=== PATIENT | female | born 1955 | race Caucasian/White ===

== ENCOUNTER → 2016-04-29 | Outpatient (CLI) | payer OTHER ==
[~2016-04-29] MED LIST: COLACE PO; LEVO50TA4 PO; MULTCAP PO; PAXI30TA2 PO; VITAD1000T PO
[2016-04-29 10:44] LABS: BASO # 0.1 K/mm3 (0.0-0.2); BASO % 0.9 % (0.0-1.0); EOS # 0.2 K/mm3 (0.0-0.50); EOS % 2.7 % (0.0-3.0); LYMPH # 1.6 K/mm3 (1.5-4.5); LYMPH % 19.8 % (24.0-44.0); MEAN CORPUSCULAR HEMOGLOBIN 31.7 pg (27.0-33.0); MEAN CORPUSCULAR HGB CONC 32.8 g/dl (32.0-36.5); MEAN CORPUSCULAR VOLUME 96.7 fl (80.0-96.0); MONO # 0.3 K/mm3 (0.0-0.8); MONO % 4.2 % (0.0-5.0); NEUTROPHILS # 5.5 K/mm3 (1.8-7.7); NEUTROPHILS % 70.1 % (36.0-66.0); RED CELL DISTRIBUTION WIDTH 14.1 % (11.5-14.5); WHITE BLOOD COUNT 7.8 K/mm3 (4.0-10.0)
[2016-04-29 11:15] LABS: ALBUMIN 3.6 GM/DL (3.2-5.2); ALBUMIN/GLOBULIN RATIO 0.97 (1.00-1.93); ALKALINE PHOSPHATASE 151 U/L (45-117); ALT/SGPT 44 U/L (12-78); ANION GAP 13 MEQ/L (8-16); AST/SGOT 44 U/L (15-37); BILIRUBIN,TOTAL 0.7 MG/DL (0.2-1.0); BLOOD UREA NITROGEN 19 MG/DL (7-18); CALCIUM LEVEL 9.1 MG/DL (8.5-10.1); CARBON DIOXIDE LEVEL 25 MEQ/L (21-32); CHLORIDE LEVEL 106 MEQ/L (98-107); CHOLESTEROL LEVEL 163 MG/DL (<200); GLOMERULAR FILTRATION RATE > 60.0 (>51); GLUCOSE, FASTING 89 MG/DL (70-105); POTASSIUM SERUM 4.4 MEQ/L (3.5-5.1); SODIUM LEVEL 144 MEQ/L (136-145); THYROXINE (T4) 6.5 UG/DL (4.5-12.0); TOTAL PROTEIN 7.3 GM/DL (6.4-8.2); TRIGLYCERIDES LEVEL 146 MG/DL (<150)
== END ==
LOC: M LAB 10:09
PROVIDERS: ATTEND Physician Assistant Medical
DX: E03.9 Hypothyroidism, unspecified (principal); E78.2 Mixed hyperlipidemia; E55.9 Vitamin D deficiency, unspecified

== ENCOUNTER → 2016-08-07 | Outpatient (CLI) | payer OTHER ==
--- NOTE | 2016-08-08 06:24 | REP ---
Clinical: High risk factors including smoking, hypertension and heart disease. Comparison: 11/16/2014 . Technique: Ho scale and color Doppler evaluation using linear high frequency transducer Findings: Examination is technically limited due to body habitus and tortuosity of the arterial vasculature. Two-dimensional ho scale and color images demonstrate mixed plaquing along the common carotid arteries extending to the carotid bulbs. Color Doppler interrogation demonstrates normal arterial wave patterns and velocities with mild spectral broadening. Normal flow direction is appreciated in the bilateral vertebral arteries. RIGHT (cm/s) LEFT (cm/s) ICA peak systolic velocity 86.1 68.1 ICA diastolic velocity 32.4 11.6 ECA peak systolic velocity 71.4 82.9 CCA peak systolic velocity 69.8 57.9 ICA/CCA ratio 1.25 1.18 Impression: No hemodynamically significant areas of narrowing or stenosis appreciated. Based on set standards narrowing falls within the less than 50% range and most pronounced at the right carotid bulb. . Signed by Dillon Edwards MD 08/08/2016 06:16 A
== END ==
LOC: M RAD 12:01
PROVIDERS: ATTEND Physician Assistant Medical
DX: J06.9 Acute upper respiratory infection, unspecified (principal); R09.89 Other specified symptoms and signs involving the circulatory and respiratory systems

== ENCOUNTER → 2016-10-30 | Outpatient (CLI) | payer OTHER ==
[2016-10-30 10:44] LABS: BASO # 0.1 K/mm3 (0.0-0.2); BASO % 1.3 % (0.0-1.0); EOS # 0.3 K/mm3 (0.0-0.50); EOS % 4.3 % (0.0-3.0); LYMPH # 1.4 K/mm3 (1.5-4.5); LYMPH % 22.6 % (24.0-44.0); MEAN CORPUSCULAR HEMOGLOBIN 34.3 pg (27.0-33.0); MEAN CORPUSCULAR HGB CONC 33.7 g/dl (32.0-36.5); MEAN CORPUSCULAR VOLUME 101.6 fl (80.0-96.0); MONO # 0.4 K/mm3 (0.0-0.8); MONO % 6.2 % (0.0-5.0); NEUTROPHILS % 63.8 % (36.0-66.0); RED CELL DISTRIBUTION WIDTH 13.3 % (11.5-14.5); WHITE BLOOD COUNT 6.3 K/mm3 (4.0-10.0)
[2016-10-30 11:29] LABS: ALKALINE PHOSPHATASE 207 U/L (45-117); ALT/SGPT 74 U/L (12-78); ANION GAP 9 MEQ/L (8-16); AST/SGOT 93 U/L (15-37); BILIRUBIN,TOTAL 0.6 MG/DL (0.2-1.0); BLOOD UREA NITROGEN 16 MG/DL (7-18); CALCIUM LEVEL 9.2 MG/DL (8.5-10.1); CARBON DIOXIDE LEVEL 23 MEQ/L (21-32); CHLORIDE LEVEL 110 MEQ/L (98-107); CHOLESTEROL LEVEL 202 MG/DL (<200); CREATININE FOR GFR 0.84 MG/DL (0.55-1.02); GLOMERULAR FILTRATION RATE > 60.0 (>51); GLUCOSE, FASTING 87 MG/DL (70-105); POTASSIUM SERUM 4.8 MEQ/L (3.5-5.1); SODIUM LEVEL 142 MEQ/L (136-145); TRIGLYCERIDES LEVEL 252 MG/DL (<150)
== END ==
LOC: M LAB 08:50
PROVIDERS: ATTEND Physician Assistant Medical
DX: R09.89 Other specified symptoms and signs involving the circulatory and respiratory systems (principal)

== ENCOUNTER → 2016-10-30 | Outpatient (CLI) | payer OTHER ==
--- NOTE | 2016-10-30 23:21 | REP ---
Clinical: Lumbar pain and radiculopathy. Technique: AP, lateral, flexion/extension, bilateral oblique and coned-down views of the lumbosacral spine. Findings: No acute fracture / compression injury is appreciated. Chronic grade 1 anterolisthesis at the L4-5 level of approximately 9.6 mm is appreciated and appears relatively stable compared to MRI dated 08/09/2016. Moderate multilevel degenerative changes include endplate sclerosis, marginal osteophytes and hypertrophic facet changes. Advanced degenerative changes at the L5-S1 level include endplate sclerosis with near complete disc space obliteration and hypertrophic facet changes. Impression: Chronic moderate to advanced multilevel degenerative changes as described above including chronic grade 1 anterolisthesis at the L4-5 level and near complete disc space obliteration at the L5-S1 level. Signed by Dillon Edwards MD 10/30/2016 11:13 P
== END ==
LOC: M RAD 08:53
PROVIDERS: ATTEND Physician Assistant Surgical
DX: M54.16 Radiculopathy, lumbar region (principal); M51.27 Other intervertebral disc displacement, lumbosacral region; M43.16 Spondylolisthesis, lumbar region

== ENCOUNTER → 2016-11-01 | Outpatient (CLI) | payer OTHER ==
--- NOTE | 2016-11-01 15:25 | REP ---
Right upper quadrant sonography: History: Increased liver function studies. Findings: Scanning through right upper quadrant of the abdomen demonstrates a normal sized thin-walled gallbladder without evidence of stone or polyp. Common bile duct is at the upper range of normal at 0.8 cm in greatest diameter. There is diffuse fatty infiltration of the liver and the liver parenchyma is poorly penetrated sonographically and poorly seen as a result. There is 0.7 cm cyst anteriorly in the right lobe. The pancreas shows no abnormality. Incidental note is made of a small distal abdominal aortic aneurysm measuring 3.2 cm anteroposterior by 3.1 cm transverse. There is no evidence of ascites or right renal abnormality. The right kidney measures 10.5 x 6.0 x 4.8 cm. Impression: 1 . Advanced diffuse fatty infiltration of the liver. 2. Small hepatic cyst. 3. 3.2 cm infrarenal abdominal aortic aneurysm. Signed by Torrey Vaz MD 11/01/2016 03:27 P
== END ==
LOC: M RAD 07:38
PROVIDERS: ATTEND Physician Assistant Medical
DX: K76.0 Fatty (change of) liver, not elsewhere classified (principal); I71.4 Abdominal aortic aneurysm, without rupture; K76.89 Other specified diseases of liver

== ENCOUNTER → 2016-12-25 | Outpatient (REF) | payer OTHER ==
[2017-01-05 14:08] LABS: BENZODIAZEPINES, URINE SCREEN Negative ng/mL (Cutoff=200); METHADONE, URINE SCREEN Negative ng/mL (Cutoff=300); OPIATES, URINE Positive ng/mL (Cutoff=300); pH, URINE 6.1 (4.5-8.9)
== END ==
LOC: M LAB REF 13:39
PROVIDERS: ATTEND Physician Assistant Medical
DX: M54.5 Low back pain (principal)

== ENCOUNTER 2017-04-17 06:15 | Emergency (ER) | payer OTHER | END 2017-04-17 07:41 | disposition home or self-care (01) | LOC: M ED 06:15 | DX: J01.00 Acute maxillary sinusitis, unspecified (principal); I10 Essential (primary) hypertension; F41.9 Anxiety disorder, unspecified; E03.9 Hypothyroidism, unspecified; F17.210 Nicotine dependence, cigarettes, uncomplicated; Z79.890 Hormone replacement therapy; Z79.899 Other long term (current) drug therapy; Z88.2 Allergy status to sulfonamides; Z87.09 Personal history of other diseases of the respiratory system; Z95.5 Presence of coronary angioplasty implant and graft | CPT/HCPCS: 99283 ==

== ENCOUNTER → 2017-06-23 | Outpatient (CLI) | payer OTHER ==
[2017-06-23 08:46] LABS: HEMOGLOBIN 13.2 g/dl (12.0-15.5); MEAN CORPUSCULAR HEMOGLOBIN 32.8 pg (27.0-33.0); MEAN CORPUSCULAR VOLUME 99.3 fl (80.0-96.0); PLATELET COUNT, AUTOMATED 280 10^3/uL (150-450); RED BLOOD COUNT 4.03 10^6/uL (4.00-5.40); RED CELL DISTRIBUTION WIDTH 14.2 % (11.5-14.5); WHITE BLOOD COUNT 7.9 10^3/uL (4.0-10.0)
[2017-06-23 09:17] LABS: ALBUMIN/GLOBULIN RATIO 1.05 (1.00-1.93); ALKALINE PHOSPHATASE 136 U/L (45-117); ALT/SGPT 59 U/L (12-78); ANION GAP 7 MEQ/L (8-16); AST/SGOT 70 U/L (7-37); BILIRUBIN,TOTAL 0.4 MG/DL (0.2-1.0); BLOOD UREA NITROGEN 13 MG/DL (7-18); CALCIUM LEVEL 9.8 MG/DL (8.8-10.2); CARBON DIOXIDE LEVEL 29 MEQ/L (21-32); CHLORIDE LEVEL 106 MEQ/L (98-107); CHOLESTEROL LEVEL 175 MG/DL (<200); CHOLESTEROL RISK RATIO 2.916 (<5); CREATININE FOR GFR 0.79 MG/DL (0.55-1.30); GLOMERULAR FILTRATION RATE > 60.0 (>45); GLUCOSE, FASTING 104 MG/DL (70-100); HDL CHOLESTEROL 60 MG/DL (>40); LDL CHOLESTEROL 57.4 MG/DL (<100); NON-HDL-C 115 MG/DL; POTASSIUM SERUM 4.5 MEQ/L (3.5-5.1); SODIUM LEVEL 142 MEQ/L (136-145); TOTAL PROTEIN 7.8 GM/DL (6.4-8.2); TRIGLYCERIDES LEVEL 288 MG/DL (<150)
[2017-06-23 11:01] LABS: TOTAL 25(OH) VITAMIN D 43.8 NG/ML (30.0-100.0)
[2017-06-23 11:46] LABS: ESTIMATED AVERAGE GLUCOSE 108 MG/DL (60-110); HEMOGLOBIN A1c 5.4 %
== END ==
LOC: M LAB 08:10
DX: I10 Essential (primary) hypertension (principal); E03.9 Hypothyroidism, unspecified; R53.83 Other fatigue; Z95.2 Presence of prosthetic heart valve
CPT/HCPCS: 71046

== ENCOUNTER → 2019-06-24 | Outpatient (CLI) | payer OTHER ==
[~2019-06-24] MED LIST changes: +AUGM875T28 PO; +FLON1SPR; +HYDR-3713 PO; +PRED20TA PO; +TESS100C PO
--- NOTE | 2019-06-24 09:31 | REP ---
REASON: Followup abdominal aortic aneurysm seen on prior right upper quadrant ultrasound 11/01/2016, which was 3.2 cm in its AP dimension and seen in an infrarenal location. Today's examination again shows an infrarenal abdominal aortic aneurysm with a maximal AP dimension of 4.8 cm measured in a longitudinal scan plane with a maximal length of 10.6 cm. There is no evidence of concomitant common iliac arterial ectasia. IMPRESSION: The infrarenal abdominal aortic aneurysm has increased in size as described above. Electronically Signed by Edwin Matamoros DO 06/24/2019 10:50 A
== END ==
LOC: M RAD 08:28
PROVIDERS: ATTEND Family Medicine
DX: I71.4 Abdominal aortic aneurysm, without rupture (principal)

== ENCOUNTER 2019-07-11 10:16 | Emergency (ER) | payer OTHER ==
[~2019-07-11] VITALS: Ht 162.6 cm; Wt 74.1 kg
[2019-07-11 11:08] LABS: BASO # 0.1 10^3/uL (0.0-0.2); BASO % 1.3 % (0.0-1.0); EOS # 0.1 10^3/uL (0.0-0.5); EOS % 1.6 % (0.0-3.0); HEMATOCRIT 45.3 % (36.0-47.0); HEMOGLOBIN 14.8 g/dl (12.0-15.5); LYMPH # 1.4 10^3/uL (1.5-5.0); LYMPH % 16.3 % (24.0-44.0); MEAN CORPUSCULAR HEMOGLOBIN 33.1 pg (27.0-33.0); MEAN CORPUSCULAR HGB CONC 32.7 g/dl (32.0-36.5); MEAN CORPUSCULAR VOLUME 101.3 fl (80.0-96.0); MONO # 0.6 10^3/uL (0.0-0.8); MONO % 7.7 % (0.0-5.0); PLATELET COUNT, AUTOMATED 254 10^3/uL (150-450); RED BLOOD COUNT 4.47 10^6/uL (4.00-5.40); WHITE BLOOD COUNT 8.3 10^3/uL (4.0-10.0)
[2019-07-11 11:20] LABS: INR 0.98; PROTHROMBIN TIME 12.7 SECONDS (11.8-14.0)
--- NOTE | 2019-07-11 11:22 | ECGEPIP ---
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
[2019-07-11 11:45] LABS: ALBUMIN 3.8 GM/DL (3.2-5.2); ALT/SGPT 35 U/L (12-78); BILIRUBIN,DIRECT 0.2 MG/DL (0.0-0.2); BILIRUBIN,TOTAL 0.4 MG/DL (0.2-1.0); BLOOD UREA NITROGEN 18 MG/DL (7-18); CARBON DIOXIDE LEVEL 26 MEQ/L (21-32); CHLORIDE LEVEL 103 MEQ/L (98-107); CK-MB VALUE MASS 3.6 NG/ML (<3.6); CPK CREATINE PHOSPHOKINASE 227 U/L (26-192); CREATININE FOR GFR 0.69 MG/DL (0.55-1.30); GLOMERULAR FILTRATION RATE > 60.0 (>45); GLUCOSE, FASTING 76 MG/DL (70-100); MB/CK RELATIVE INDEX 1.59 (< OR =4); POTASSIUM SERUM 3.8 MEQ/L (3.5-5.1); SODIUM LEVEL 139 MEQ/L (136-145); TOTAL PROTEIN 8.5 GM/DL (6.4-8.2); TROPONIN I 0.04 NG/ML (< 0.10)
[2019-07-11] MEDS ORDERED: LORazepam 2 MG TAB PO PRN (15:00)
[2019-07-11 17:45] VITALS: BP 159/72
[2019-07-12] MEDS ORDERED: MULTIVITAMINS/MINERALS THERAP 1 TAB PO SCH (09:00)
== END 2019-07-11 19:03 | disposition home or self-care (01) ==
LOC: M ED 10:16
DX: F10.221 Alcohol dependence with intoxication delirium (principal); I10 Essential (primary) hypertension; I25.10 Atherosclerotic heart disease of native coronary artery without angina pectoris; F17.218 Nicotine dependence, cigarettes, with other nicotine-induced disorders; I71.4 Abdominal aortic aneurysm, without rupture; Z79.899 Other long term (current) drug therapy; Z79.52 Long term (current) use of systemic steroids; Z88.2 Allergy status to sulfonamides; F32.9 Major depressive disorder, single episode, unspecified; F41.9 Anxiety disorder, unspecified
CPT/HCPCS: 80048; 80076; 82550; 82553; 85025; 85610; 93005; 93041; 94760; 99285; G0480

== ENCOUNTER 2020-01-09 08:01 | Inpatient (IN) | payer OTHER ==
[~2020-01-09 08:01] MED LIST changes: +RAMELTEON 8 MG TAB (ROZEREM) PO ONE
[2020-01-09] MEDS ORDERED: FLUO20CA22 PO (08:24)
[2020-01-09] MEDS ORDERED: SIMV20TA22 PO (08:24)
[2020-01-09] MEDS ORDERED: ALPR0.5T3 PO (08:24)
[2020-01-09] MEDS ORDERED: ROPI1TAB3 PO (08:24)
[2020-01-09] MEDS ORDERED: METO1TAB32 PO (08:24)
[2020-01-09 09:44] LABS: BASO # 0.1 10^3/uL (0.0-0.2); EOS # 0.3 10^3/uL (0.0-0.5); EOS % 4.2 % (0.0-3.0); HEMATOCRIT 43.3 % (36.0-47.0); HEMOGLOBIN 14.2 g/dl (12.0-15.5); LYMPH # 1.5 10^3/uL (1.5-5.0); LYMPH % 24.4 % (24.0-44.0); MEAN CORPUSCULAR HEMOGLOBIN 32.6 pg (27.0-33.0); MEAN CORPUSCULAR HGB CONC 32.8 g/dl (32.0-36.5); MEAN CORPUSCULAR VOLUME 99.5 fl (80.0-96.0); MONO # 0.4 10^3/uL (0.0-0.8); MONO % 7.3 % (0.0-5.0); NEUTROPHILS # 3.8 10^3/uL (1.5-8.5); NEUTROPHILS % 62.8 % (36.0-66.0); PLATELET COUNT, AUTOMATED 229 10^3/uL (150-450); RED BLOOD COUNT 4.35 10^6/uL (4.00-5.40)
[2020-01-09 10:19] LABS: ALBUMIN 4.1 GM/DL (3.2-5.2); ALT/SGPT 24 U/L (12-78); BILIRUBIN,DIRECT < 0.1 MG/DL (0.0-0.2); BILIRUBIN,TOTAL 0.4 MG/DL (0.2-1.0); BLOOD UREA NITROGEN 14 MG/DL (7-18); CALCIUM LEVEL 9.6 MG/DL (8.8-10.2); CARBON DIOXIDE LEVEL 27 MEQ/L (21-32); CHLORIDE LEVEL 102 MEQ/L (98-107); CK-MB VALUE MASS 3.5 NG/ML (<3.6); CPK CREATINE PHOSPHOKINASE 478 U/L (26-192); CREATININE FOR GFR 0.85 MG/DL (0.55-1.30); ETHYL ALCOHOL (ETHANOL) < 0.003 % (0.000-0.010); FREE T4 0.15 NG/DL (0.76-1.46); GLOMERULAR FILTRATION RATE > 60.0 (>45); GLUCOSE, FASTING 88 MG/DL (70-100); MB/CK RELATIVE INDEX 0.73 (< OR =4); POTASSIUM SERUM 3.8 MEQ/L (3.5-5.1); SODIUM LEVEL 136 MEQ/L (136-145); TOTAL PROTEIN 7.4 GM/DL (6.4-8.2); TROPONIN I 0.03 NG/ML (< 0.10)
[2020-01-09] MEDS ORDERED: LEVOTHYROXINE 137MCG TABLET (0.137MG) PO ONE (11:45)
[2020-01-09] MEDS ORDERED: ISOVUE-370 76% 100ML VIAL As Ordered ONE (13:58)
--- NOTE | 2020-01-09 14:11 | REP ---
INDICATION: weakness. COMPARISON: 06/23/2017 two-view chest TECHNIQUE: AP portable upright FINDINGS: Sternotomy wires are again seen with cardiac valve the surgery. Heart is mildly prominent even allowing for AP portable lordotic technique. There is venous hypertension. Some underlying fibrosis makes early interstitial edema difficult to exclude. No gross infiltrate or effusion. A tortuous calcified ectatic aorta again seen and unchanged. Mediastinal with unchanged allowing for lordotic portable technique. The bones show no acute finding. No free air under the diaphragm. IMPRESSION: 1. Some mild cardiomegaly with prior cardiac valve surgery. Evidence for pulmonary venous hypertension. Early interstitial edema difficult to exclude in the setting of mild fibrosis. 2. No dense consolidation, effusion, parenchymal mass, pleural thickening or other new/acute finding. 3. Tortuous, calcified ectatic aorta with no change from previous studies. Bones intact. <Electronically signed by Holger Weber > 01/09/20 [id number]
--- NOTE | 2020-01-09 15:24 | REP ---
INDICATION: known AAA, weakness, back pain. COMPARISON: Abdominal aortic ultrasound 06/24/2019, MRI lumbar spine T2 sagittal sequence [id number] TECHNIQUE: Bolus of 100 mL Isovue 370 with scanning through the abdomen in axial projection and both coronal and sagittal standard and coronal MIP reformats provided. FINDINGS: The lung bases were clear. The heart is enlarged with prior mitral valve the surgery evident. Left atrium and left ventricle prominent no pericardial thickening or effusion. No hiatal hernia. The liver is not enlarged. No splenomegaly, ascites in the upper abdomen or focal lesion in either of these organs. Gallbladder without calcified stone or mass adrenal glands, pancreas and kidneys grossly unremarkable. Abdominal aorta shows tortuosity and atherosclerotic calcific plaque scattered throughout. It is infrarenal aneurysm has a maximum AP diameter of 4.6 cm in the infrarenal aorta in a transverse diameter 4.8 cm. Eccentric plaque is noted. There is no evidence of a retroperitoneal leak. Atherosclerotic calcifications extend into the common and external iliacs as well as the internal iliac arteries the common iliacs maintain flow and there is some stenosis in the proximal right internal iliac artery with poststenotic dilatation and maximum diameter up to 15 mm no mesenteric, retroperitoneal or periaortic adenopathy. There is no perforation or free air. No ascites in the abdomen. Small bowel loops and colon are unremarkable. Bone windows show degenerative disc changes lower lumbar spine with a few mm of anterolisthesis of L4 on L5 from facet arthritis, no spondylolysis. Sclerotic area in the inferior aspect of the T10 vertebral body is unchanged dating back to a CT chest of 04/02/2012 and represents a degenerative change. IMPRESSION: 1. Infrarenal abdominal aortic aneurysm with maximum AP diameter 4 point 6 cm in transverse diameter 4.8 cm with eccentric calcific and soft plaque evident. I do not see evidence of acute dissection, retroperitoneal bleed or aortic leak. The least a 9 cm length from the infrarenal region to the bifurcation with a fusiform appearance of the aneurysm. No retroperitoneal bleed or leak. No significant progression in size from and ultrasound on 06/24/2019. 2. Atherosclerotic calcification and plaque in the common and internal iliacs as well as external iliac arteries with ectasia but no aneurysm. 3. No other significant or acute finding. <Electronically signed by Holger Weber > 01/09/20 [id number]
[2020-01-09] MEDS ORDERED: MULT-40 PO (16:14)
[2020-01-09] MEDS ORDERED: SYNT137T7 PO (16:14)
[2020-01-09] MEDS ORDERED: D31000TA2 PO (16:14)
[2020-01-09] MEDS ORDERED: ACET-683 PO (16:14)
[2020-01-09] MEDS ORDERED: NORCO, ANEXSIA 5/325MG TABLET (HYDROcodone/ACETAMINOPHEN) PO PRN (17:15)
[2020-01-09] MEDS ORDERED: ALPRAZolam 0.5 MG TAB PO PRN (17:15)
[2020-01-09 18:03] VITALS: BP 150/95
--- NOTE | 2020-01-09 18:30 | HPEPDOC ---
General Date of Admission Jan 09, 2020 at 15:29 Date of Service: Jan 09, 2020 Chief Complaint The patient is a 64-year-old female admitted with a reason for visit of medication non-compliance, hypothyroidism, and generalized weakness. Source: Patient History of Present Illness Ms. Estrella is a 64 year old female with CAD s/p CABG, abdominal aneurysm, depression, bed bugs, and hypothyroidism who is here for generalized weakness. About 2 to 3 months ago she was following with Dr. Marie. Her insurance changed and so she has not been able to seen him. She ran out of medications for 2 to 3 weeks. She is on levothyroxine and has not taken it for 2 to 3 months. For the past 5 days, she has felt weak and dizzy. She has chills/cold intolerance which she attributes to hypothyroidism. Today, she felt so weak, she was not able to get out of bed. She called 911 which brought her to the hospital. While in the ED, they check her thyroid studies. TSH was 59 and free T4 was 0.15. They called for admission. Otherwise, She was following a vascular surgeon at [facility] for her abdominal aortic aneurysm. The previous size was 4.8cm. She was lost to follow up. Imaging in the ED demonstrates a similar sized AAA. Home Medications Scheduled Cholecalciferol (Vitamin D3) (Vitamin D3) 1,000 Unit Tablet, 1,000 UNITS PO DAILY, (Reported) Fluoxetine Hcl (Fluoxetine HCl) 20 Mg Capsule, 20 MG PO DAILY, (Reported) Levothyroxine Sodium (Synthroid) 137 Mcg Tablet, 137 MCG PO DAILY, (Reported) Metoprolol Succinate (Metoprolol Succinate) 25 Mg Tab.er.24h, 25 MG PO DAILY, (Reported) Multivitamin (Multivitamins) 1 Each Tablet, 1 TAB PO DAILY, (Reported) Ropinirole HCl (Ropinirole HCl) 1 Mg Tablet, 1 MG PO BID, (Reported) Simvastatin (Simvastatin) 20 Mg Tablet, 20 MG PO QHS, (Reported) Scheduled PRN Acetaminophen (Acetaminophen) 500 Mg Tablet, 1,000 MG PO Q8H PRN for PAIN / FEVER, (Reported) Alprazolam (Alprazolam) 0.5 Mg Tablet, 0.5 MG PO TID PRN for ANXIETY, (Reported) Hydrocodone/Acetaminophen (Hydrocodone-Acetamin 5-325 mg) 1 Tab Tab, 1 TAB PO BID PRN for PAIN, (Reported) Allergies Coded Allergies: Sulfa (Sulfonamide Antibiotics) (Verified Allergy, Intermediate, 07/11/19) Past Medical History Medical History 1. CAD s/p CABG 2. Hyperlipidemia 3. Hypertension 4. AAA, 4.8 cm and 9cm long (01/09/2020) 5. Low back pain 6. Hypothyroidism 7. Depression Surgical History 1. CABG x3 Family History Father: DM and heart disease Mother: Thyroid and HTN Social History * Smoker: current smoker (Smoked for 10 years, less than 1ppd) Alcohol: rarely Drugs: denies A-FIB/CHADSVASC A-FIB History Current/History of A-Fib/PAF?: No Review of Systems Constitutional: Reports: Chills Eyes: Reports: Other (Watery eyes) ENT: Reports: Other Symptoms (Rhinorrhea); Denies: Head Aches Skin: Denies: Rash Pulmonary: Denies: Dyspnea, Cough Cardiovascular: Denies: Chest Pain Gastrointestinal: Reports: Abdominal Pain (chronic ); Denies: Nausea Genitourinary: Denies: Dysuria Hematologic: Reports: Bruising Endocrine: Denies: Polydipsia, Polyphagia, Polyuria Physical Examination General Exam: Positive: Alert, Cooperative, No Acute Distress Eye Exam: Positive: EOMI; Negative: Sclera icteric ENT Exam: Positive: Atraumatic Neck Exam: Positive: Supple Chest Exam: Positive: Clear to auscultation; Negative: Rales, Rhonchi, Wheezing Heart Exam: Positive: Rate Normal, Regular Rhythm Abdomen Exam: Positive: Normal bowel sounds, Soft; Negative: Tenderness Extremity Exam: Negative: Cyanosis Skin Exam: Positive: Other skin issue (Bed bug bites with the prescense of bed bugs) Neuro Exam: Positive: Cranial Nerves 3-12 NL Psych Exam: Positive: Mental status NL, Anxiety Vital Signs Vital Signs Date Time Temp Pulse Resp B/P (MAP) Pulse Ox O2 Delivery O2 Flow Rate FiO2 01/09/20 17:10 53 18 152/78 (102) 98 Room Air 01/09/20 15:40 98.2 Laboratory Data Labs 24H Laboratory Tests 2 01/09/20 08:48: Immature Granulocyte % (Auto) 0.3, Neutrophils (%) (Auto) 62.8, Lymphocytes (%) (Auto) 24.4, Monocytes (%) (Auto) 7.3H, Eosinophils (%) (Auto) 4.2H, Basophils (%) (Auto) 1.0, Neutrophils # (Auto) 3.8, Lymphocytes # (Auto) 1.5, Monocytes # (Auto) 0.4, Eosinophils # (Auto) 0.3, Basophils # (Auto) 0.1, Nucleated Red Blood Cells % (auto) 0.0 01/09/20 08:54: Anion Gap 7L, Glomerular Filtration Rate > 60.0, Calcium Level 9.6, Total Bilirubin 0.4, Direct Bilirubin < 0.1, Aspartate Amino Transf (AST/SGOT) 47H, Alanine Aminotransferase (ALT/SGPT) 24, Alkaline Phosphatase 74, Total Creatine Kinase 478H, Creatine Kinase MB 3.5, Creatine Kinase MB Relative Index 0.73, Troponin I 0.03, Total Protein 7.4, Albumin 4.1, Albumin/Globulin Ratio 1.2, Thyroid Stimulating Hormone (TSH) 59.800H, Free Thyroxine 0.15L, Ethyl Alcohol Level < 0.003 01/09/20 16:30: Coronavirus (COVID-19)(PCR) NEGATIVE CBC/BMP Laboratory Tests 01/09/20 08:48 01/09/20 08:54 Assessment/Plan Ms. Estrella is a 64 year old female with noncompliance, hypothyroidism, and CABG here with generalized weakness. We will restart her medication and have physical therapy evaluate her. She may need rehab or placement. Plan / VTE VTE Prophylaxis Ordered?: Yes Plan Plan 1. Generalized weakness -Unable to get out of bed -Secondary to hypothyroidism -Restart her thyroid medication -Physical therapy ordered 2. Hypothyroidism -Restart her thyroid medication 3. CAD s/p CABG -Aspirin, metoprolol, simvastatin -No active chest pain 4. Hypertension -Restarted metoprolol -Adding lisinopril for better control 5. Abdominal pain -Reports abdominal pain and takes [place] for the pain previously. Reports pain from AAA. She has been without [place] for 2 to 3 months. Will hold [place] for the time being -Acetaminophen for pain -CT abd/pelvis did not demonstrate any source of pain 6. Depression -Restart Fluoxetine 7. Anxiety -Hold alprazolam. She has been weight alprazolam for 2 to 3 months. 8. Bed bugs -Hygiene -Contact precautions 9. DVT ppx -Lovenox Dispo: Pending physical therapy. May need rehab ROMY GIBBONS DO Jan 09, 2020 18:02
[2020-01-09] MEDS: rOPINIRole 1MG TAB PO SCH (20:42)
[2020-01-09] MEDS: SIMVASTATIN 20 MG TAB PO SCH (20:42)
[2020-01-09] MEDS: ENOXAPARIN 40MG/0.4ML SYRINGE (J1650 PER 10MG) SC SCH (20:42)
[2020-01-09] MEDS: lisinopriL 5 MG TAB PO SCH (20:43)
[2020-01-09 22:00] VITALS: BP_SYST 131; BP_SYST 150; BP_DIAS 71; BP_DIAS 89
[2020-01-10] MEDS ORDERED: RAMELTEON 8 MG TAB (ROZEREM) PO ONE (00:15)
[2020-01-10] MEDS: LEVOTHYROXINE 137MCG TABLET (0.137MG) PO SCH (05:40)
[2020-01-10 06:00] VITALS: BP 126/73
[2020-01-10] MEDS: ACETAMINOPHEN 500 MG TAB PO PRN ×3 (06:40→22:09)
[2020-01-10 07:01] LABS: HEMATOCRIT 45.3 % (36.0-47.0); HEMOGLOBIN 14.9 g/dl (12.0-15.5); MEAN CORPUSCULAR HEMOGLOBIN 33.6 pg (27.0-33.0); MEAN CORPUSCULAR HGB CONC 32.9 g/dl (32.0-36.5); MEAN CORPUSCULAR VOLUME 102.3 fl (80.0-96.0); PLATELET COUNT, AUTOMATED 241 10^3/uL (150-450); RED BLOOD COUNT 4.43 10^6/uL (4.00-5.40); WHITE BLOOD COUNT 6.3 10^3/uL (4.0-10.0)
[2020-01-10 07:29] LABS: BLOOD UREA NITROGEN 12 MG/DL (7-18); CALCIUM LEVEL 9.3 MG/DL (8.8-10.2); CARBON DIOXIDE LEVEL 30 MEQ/L (21-32); CHLORIDE LEVEL 101 MEQ/L (98-107); GLOMERULAR FILTRATION RATE > 60.0 (>45); GLUCOSE, FASTING 93 MG/DL (70-100); POTASSIUM SERUM 3.6 MEQ/L (3.5-5.1); SODIUM LEVEL 137 MEQ/L (136-145)
[2020-01-10] MEDS: VITAMIN D 1,000 INTERNATIONAL UNITS TABLET PO SCH (08:44)
[2020-01-10] MEDS: DOCUSATE SODIUM 100 MG CAP PO SCH ×2 (08:44→22:08)
[2020-01-10] MEDS: rOPINIRole 1MG TAB PO SCH ×2 (08:44→22:07)
[2020-01-10] MEDS: ASPIRIN 81 MG ENTERIC TAB PO SCH (08:44)
[2020-01-10] MEDS: FLUoxetine 20 MG CAP PO SCH (08:44)
[2020-01-10] MEDS: lisinopriL 5 MG TAB PO SCH (08:44)
[2020-01-10] MEDS: METOPROLOL SUCC *XL* 25MG TAB (TopROL *XL*) PO SCH (08:45)
[2020-01-10] MEDS: MULTIVITAMINS/MINERALS THERAP 1 TAB PO SCH (08:45)
[2020-01-10] MEDS ORDERED: FLUBLOK(EGG FREE)(QUAD)INFLUENZA VACC 0.5ML SYRINGE 18YRS & OLDER IM ONE (09:00)
--- NOTE | 2020-01-10 09:43 | ECGEPIP ---
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
[2020-01-10 14:00] VITALS: BP 103/61
[2020-01-10] MEDS: LIDOCAINE 5% (LIDODERM) PATCH TD SCH (14:15)
[2020-01-10 22:00] VITALS: BP 130/90
[2020-01-10] MEDS: **NOTE PATIENT COMMENT** MISC XX SCH (22:07)
[2020-01-10] MEDS: ENOXAPARIN 40MG/0.4ML SYRINGE (J1650 PER 10MG) SC SCH (22:08)
[2020-01-10] MEDS: SIMVASTATIN 20 MG TAB PO SCH (22:08)
[2020-01-10] MEDS: RAMELTEON 8 MG TAB (ROZEREM) PO PRN (22:26)
--- NOTE | 2020-01-10 22:58 | IPNPDOC ---
Subjective Date Seen The patient was seen on 01/10/20. Subjective Chief Complaint/HPI Ms. Estrella is a 64 year old female with CAD s/p CABG, abdominal aneurysm, depression, bed bugs, and hypothyroidism who is here for generalized weakness. She still feels weak and has cold intolerance. Otherwise denies dyspnea, abdominal pain, or dysuria. Objective Physical Examination General Exam: Positive: Alert, Cooperative, No Acute Distress Eye Exam: Positive: EOMI; Negative: Sclera icteric ENT Exam: Positive: Atraumatic Neck Exam: Positive: Supple Chest Exam: Positive: Clear to auscultation; Negative: Rales, Rhonchi, Wheezing Heart Exam: Positive: Rate Normal, Regular Rhythm Abdomen Exam: Positive: Normal bowel sounds, Soft; Negative: Tenderness Extremity Exam: Negative: Cyanosis Skin Exam: Positive: Other skin issue (Bed bug bites with the prescense of bed bugs) Neuro Exam: Positive: Cranial Nerves 3-12 NL Psych Exam: Positive: Mental status NL, Anxiety Assessment /Plan Assessment Ms. Estrella is a 64 year old female with noncompliance, hypothyroidism, and CABG here with generalized weakness. We will restart her medication and have physical therapy evaluate her. She may need rehab or placement. Plan/VTE VTE Prophylaxis Ordered?: Yes Plan 1. Generalized weakness -Unable to get out of bed -Secondary to hypothyroidism -Restart her thyroid medication -Physical therapy ordered 2. Hypothyroidism -Restart her thyroid medication 3. CAD s/p CABG -Aspirin, metoprolol, simvastatin -No active chest pain 4. Hypertension -Restarted metoprolol -Adding lisinopril for better control 5. Abdominal pain -Reports abdominal pain and takes [place] for the pain previously. Reports pain from AAA. She has been without [place] for 2 to 3 months. Will hold [place] for the time being -Acetaminophen for pain -CT abd/pelvis did not demonstrate any source of pain 6. Depression -Restart Fluoxetine 7. Anxiety -Hold alprazolam. She has been weight alprazolam for 2 to 3 months. 8. Bed bugs -Hygiene -Contact precautions 9. DVT ppx -Lovenox Dispo: Pending physical therapy. May need rehab VS, I&O, 24H, Fishbone Vital Signs/I&O Vital Signs Date Time Temp Pulse Resp B/P (MAP) Pulse Ox O2 Delivery O2 Flow Rate FiO2 01/10/20 14:00 97.6 70 18 103/61 (75) 98 Room Air I&O- Last 24 Hours up to 6 AM0 01/10/20 06:00 Intake Total 0 ml Output Total 200 ml Balance -200 ml Laboratory Data 24H LABS Laboratory Tests 2 01/10/20 06:32: Nucleated Red Blood Cells % (auto) 0.0, Anion Gap 6L, Glomerular Filtration Rate > 60.0, Calcium Level 9.3, Magnesium Level 2.0 01/10/20 09:55: Urine Color YELLOW, Urine Appearance HAZY, Urine pH 5.0, Urine Specific Lyles 1.045, Urine Protein NEGATIVE, Urine Glucose (UA) NEGATIVE, Urine Ketones NEGATIVE, Urine Blood 1+H, Urine Nitrite NEGATIVE, Urine Bilirubin NEGATIVE, Urine Urobilinogen 0.2, Urine Leukocyte Esterase TRACEH, Urine WBC (Auto) 5H, Urine RBC (Auto) 1, Urine Hyaline Casts (Auto) 9, Urine Bacteria (Auto) 1+H, Urine Squamous Epithelial Cells 6, Urine Sperm (Auto) CBC/BMP Laboratory Tests 01/10/20 06:32 Microbiology Microbiology 01/10/20 Urine Culture, Received Pending ROMY GIBBONS DO Jan 10, 2020 22:57
[2020-01-11 06:00] VITALS: BP 152/87
[2020-01-11] MEDS: LEVOTHYROXINE 137MCG TABLET (0.137MG) PO SCH (06:12)
[2020-01-11 07:28] LABS: BLOOD UREA NITROGEN 14 MG/DL (7-18); CARBON DIOXIDE LEVEL 26 MEQ/L (21-32); CHLORIDE LEVEL 103 MEQ/L (98-107); CREATININE FOR GFR 0.84 MG/DL (0.55-1.30); GLOMERULAR FILTRATION RATE > 60.0 (>45); GLUCOSE, FASTING 95 MG/DL (70-100); POTASSIUM SERUM 3.4 MEQ/L (3.5-5.1); SODIUM LEVEL 137 MEQ/L (136-145)
[2020-01-11 07:29] LABS: CALCIUM LEVEL 9.5 MG/DL (8.8-10.2)
[2020-01-11] MEDS: METOPROLOL SUCC *XL* 25MG TAB (TopROL *XL*) PO SCH (08:11)
[2020-01-11] MEDS: VITAMIN D 1,000 INTERNATIONAL UNITS TABLET PO SCH (08:11)
[2020-01-11] MEDS: MULTIVITAMINS/MINERALS THERAP 1 TAB PO SCH (08:11)
[2020-01-11] MEDS: ASPIRIN 81 MG ENTERIC TAB PO SCH (08:11)
[2020-01-11] MEDS: FLUoxetine 20 MG CAP PO SCH (08:11)
[2020-01-11] MEDS: DOCUSATE SODIUM 100 MG CAP PO SCH ×2 (08:11→21:00)
[2020-01-11] MEDS: rOPINIRole 1MG TAB PO SCH ×2 (08:11→20:59)
[2020-01-11] MEDS: lisinopriL 5 MG TAB PO SCH (08:12)
[2020-01-11] MEDS: LIDOCAINE 5% (LIDODERM) PATCH TD SCH (08:12)
[2020-01-11] MEDS ORDERED: POTASSIUM CHLORIDE 10 MEQ SR TABLET PO ONE (11:00)
[2020-01-11] MEDS ORDERED: PSEUDOEPHEDRINE 30 MG TAB PO PRN (11:30)
[2020-01-11] MEDS: SODIUM CHLORIDE NASAL 0.65% SPRAY BTL (OCEAN) SCH ×2 (12:49→20:59)
[2020-01-11] MEDS: guaiFENesin 200 MG TAB PO SCH ×3 (12:49→20:59)
[2020-01-11 13:57] VITALS: BP 131/76
--- NOTE | 2020-01-11 15:08 | IPNPDOC ---
Text Note Date of Service The patient was seen on 01/11/20. NOTE Subjective: Mrs. Estrella is a 64-year-old female patient with coronary artery disease s/p CABG, abdominal aneurysm, depression, bedbugs and hypothyroidism who presented to the emergency department with generalized weakness. Patient was seen at bed side, She reports to have weakness, cold intolerance. she also reports to have pain and feeling stuffed in her sinuses. She denies having any nausea, vomiting, chest pain, abdominal pain, dysuria, diarrhea, constipation. Objective: General: Patient is awake, alert, oriented times three, laying in bed , no apparent distress. Cardiovascular: S1, S2, normal rhythm, no murmur, rub, or gallop. Respiratory: Chest is clear to auscultation bilaterally, no rhonchi, wheezes or rubs. Abdomen: Soft, bowel sounds positive, no bruits. No tenderness on palpation. Liver edge, spleen, kidney not felt, no masses. Extremities: No clubbing or cyanosis. No edema, no tenderness. Spine: No kyphosis, no paraspinal tenderness, no costovertebral tenderness. Central nervous system ([place]ANTY HOSE): Awake, alert and fully oriented. Skin: She has some skin excoriation and scratching in the bilateral legs. Assessment: Patient is a 64-year-old female with noncompliance with her medication, hypothyroidism, CAD s/p CABG, presented to the emergency department with generalized weakness. Plan: Generalized weakness: - Patient reports that and she was unable to get up from bed, likely from her hypothyroidism and noncompliance with the medication. - Patient TSH was 59.8 on presentation, free T4 0.15. - Will continue levothyroxine 137mcg. - Her potassium was 3.4 low today, will give her oral potassium. Hypothyroidism: - Continue levothyroxine. Nasal congestion: - She reports to have pain in her left maxillary sinus, and tender on palpation. - Will give her saline nasal spray and Robitussin. - Unlikely she has acute infection as her white count is normal Coronary artery disease s/p CABG: - Will continue aspirin 81 MG, metoprolol 25 mg, simvastatin 20mg Hypertension: - Continue metoprolol 25 milligrams - Will continue lisinopril 5mg. Abdominal aortic aneurysm: - Patient got a CT angiogram abdomen was showing infrarenal abdominal aortic aneurysm with maximum AP diameter of 4.6 cm in transverse diameter and 4.8 cm with eccentric calcified and soft plaque evidence. No evidence of progression in size from the ultrasound on 06/24/2019. - Will recommend to follow up with her PCP for a routine ultrasound abdomen to keep a watch of her aneurysm. Depression: - Will continue fluoxetine 20 mg Anxiety: - Will hold alprazolam for now Bed bugs: - Hygiene and contact precautions. DVT prophylaxis: - Lovenox Patient was requesting for some help at home, PFS consult is in place. Attending Note: Patient seen and examined independently. Agree with resident's note. VS,Fishbone, I+O VS, Fishbone, I+O Laboratory Tests 01/11/20 06:28 Vital Signs Date Time Temp Pulse Resp B/P (MAP) Pulse Ox O2 Delivery O2 Flow Rate FiO2 01/11/20 13:57 97.5 56 16 131/76 (94) 92 Room Air I&O- Last 24 Hours up to 6 AM 01/11/20 06:00 Intake Total 1380 ml Output Total 700 ml Balance 680 ml Richie Wick MD Jan 11, 2020 15:08 JUSTEN MARIE MD Jan 11, 2020 17:34
[2020-01-11] MEDS: RAMELTEON 8 MG TAB (ROZEREM) PO PRN (20:59)
[2020-01-11] MEDS: ENOXAPARIN 40MG/0.4ML SYRINGE (J1650 PER 10MG) SC SCH (20:59)
[2020-01-11] MEDS: SIMVASTATIN 20 MG TAB PO SCH (20:59)
[2020-01-11] MEDS: **NOTE PATIENT COMMENT** MISC XX SCH ×2 (20:59→21:00)
[2020-01-11 22:00] VITALS: BP 156/93
[2020-01-12] MEDS: guaiFENesin 200 MG TAB PO SCH ×6 (01:02→20:11)
[2020-01-12] MEDS: LEVOTHYROXINE 137MCG TABLET (0.137MG) PO SCH (05:41)
[2020-01-12 06:00] VITALS: BP 148/90
[2020-01-12 06:38] LABS: HEMATOCRIT 43.6 % (36.0-47.0); HEMOGLOBIN 14.3 g/dl (12.0-15.5); MEAN CORPUSCULAR HEMOGLOBIN 33.6 pg (27.0-33.0); MEAN CORPUSCULAR HGB CONC 32.8 g/dl (32.0-36.5); MEAN CORPUSCULAR VOLUME 102.6 fl (80.0-96.0); PLATELET COUNT, AUTOMATED 233 10^3/uL (150-450); RED BLOOD COUNT 4.25 10^6/uL (4.00-5.40); WHITE BLOOD COUNT 4.8 10^3/uL (4.0-10.0)
[2020-01-12 07:49] LABS: BLOOD UREA NITROGEN 13 MG/DL (7-18); CALCIUM LEVEL 9.4 MG/DL (8.8-10.2); CARBON DIOXIDE LEVEL 29 MEQ/L (21-32); CHLORIDE LEVEL 103 MEQ/L (98-107); CREATININE FOR GFR 0.86 MG/DL (0.55-1.30); GLOMERULAR FILTRATION RATE > 60.0 (>45); GLUCOSE, FASTING 95 MG/DL (70-100); POTASSIUM SERUM 3.8 MEQ/L (3.5-5.1); SODIUM LEVEL 138 MEQ/L (136-145)
[2020-01-12] MEDS ORDERED: cefTRIAXone SOD 1 GM in D5W MINI-BAG PLUS 50 ML IV SCH (09:00)
[2020-01-12] MEDS: DOCUSATE SODIUM 100 MG CAP PO SCH ×2 (09:00→20:12)
[2020-01-12] MEDS: LIDOCAINE 5% (LIDODERM) PATCH TD SCH (09:26)
[2020-01-12] MEDS: ASPIRIN 81 MG ENTERIC TAB PO SCH (09:27)
[2020-01-12] MEDS: ACETAMINOPHEN 500 MG TAB PO PRN ×2 (09:27→18:18)
[2020-01-12] MEDS: VITAMIN D 1,000 INTERNATIONAL UNITS TABLET PO SCH (09:27)
[2020-01-12] MEDS: MULTIVITAMINS/MINERALS THERAP 1 TAB PO SCH (09:27)
[2020-01-12] MEDS: rOPINIRole 1MG TAB PO SCH ×2 (09:27→20:12)
[2020-01-12] MEDS: FLUoxetine 20 MG CAP PO SCH (09:27)
[2020-01-12] MEDS: SODIUM CHLORIDE NASAL 0.65% SPRAY BTL (OCEAN) SCH ×2 (09:28→20:12)
[2020-01-12] MEDS: METOPROLOL SUCC *XL* 25MG TAB (TopROL *XL*) PO SCH (09:33)
[2020-01-12] MEDS: lisinopriL 5 MG TAB PO SCH (09:34)
--- NOTE | 2020-01-12 10:42 | IPNPDOC ---
Text Note Date of Service The patient was seen on 01/12/20. NOTE Mrs. Estrella is a 64-year-old female patient with coronary artery disease s/p CABG, abdominal aneurysm, depression, bedbugs and hypothyroidism who presented to the emergency department with generalized weakness. Subjective: Patient was seen at bedside, she reports to still have weakness but improved from yesterday, having pain over maxillary is sinus and feeling stuffed. She reports that she tried to move out of bed and was feeling dizzy. She reported having some burning during sensation yesterday to another physician. She denies having any today, denies nausea, vomiting, chest pain, abdominal pain ,diarrhea. Objective: General: Patient is awake, alert, oriented times three, laying in bed , no apparent distress. Cardiovascular: S1, S2, normal rhythm, no murmur, rub, or gallop. Respiratory: Chest is clear to auscultation bilaterally, no rhonchi, wheezes or rubs. Abdomen: Soft, bowel sounds positive, no bruits. No tenderness on palpation. Liver edge, spleen, kidney not felt, no masses. Extremities: No clubbing or cyanosis. No edema, no tenderness. Spine: No kyphosis, no paraspinal tenderness, no costovertebral tenderness. Central nervous system (BOND BROKER): Awake, alert and fully oriented. Skin: She has some skin excoriation and scratching in the bilateral legs. Assessment: Patient is a 64-year-old female with noncompliance with her medication, hypothyr oidism, CAD s/p CABG, presented to the emergency department with generalized weakness. Plan: Generalized weakness: - Patient reports she was trying to move out of bed and still feels weak, and dizzy. Most likely because of her hypothyroidism. - Will continue levothyroxine 137 MCG Hypothyroidism: -Continue levothyroxine UTI: - Patient did complain yesterday to one of the physician that she was having burning in sensation. - UA was done and was found to have group B strep, we'll start her on IV Rocephin. - Will start her on oral Cefdinir from tomorrow. Nasal congestion: - She has mild pain in the left maxillary sinus, and frontal sinuses - Will continue saline nasal spray and Robitussin. - Unlikely she has acute infection as her white count is normal Coronary artery disease s/p CABG: - Continue aspirin 81 mg, metoprolol 25 mg, simvastatin 20 mg.. Hypertension: - Continue metoprolol 25 MG, lisinopril 5 MG Abdominal aortic aneurysm: - Patient got a CT angiogram abdomen was showing infrarenal abdominal aortic aneurysm with maximum AP diameter of 4.6 cm in transverse diameter and 4.8 cm with eccentric calcified and soft plaque evidence. No evidence of progression in size from the ultrasound on 06/24/2019. - Will recommend to follow up with her PCP for a routine ultrasound abdomen to keep a watch of her aneurysm. Depression - Will continue fluoxetine 20 mg Anxiety:- -Continue to Hold alprazolam Bed bugs: - Contact precaution and hygiene DVT prophylaxis: - Lovenox Disposition: And is working with physical therapy, and regaining her strength. Improving medically, no acute issues. Patient is ALC status. VS,Fishbone, I+O VS, Fishbone, I+O Laboratory Tests 01/12/20 06:17 01/12/20 07:33 Vital Signs Date Time Temp Pulse Resp B/P (MAP) Pulse Ox O2 Delivery O2 Flow Rate FiO2 01/12/20 09:34 133/88 01/12/20 09:33 68 01/12/20 06:00 97.3 20 93 01/11/20 13:57 Room Air I&O- Last 24 Hours up to 6 AM 01/12/20 06:00 Intake Total 210 ml Output Total 200 ml Balance 10 ml Richie Wick MD Jan 12, 2020 10:42
[2020-01-12 14:00] VITALS: BP 130/82
[2020-01-12] MEDS: RAMELTEON 8 MG TAB (ROZEREM) PO PRN (20:11)
[2020-01-12] MEDS: SIMVASTATIN 20 MG TAB PO SCH (20:12)
[2020-01-12] MEDS: **NOTE PATIENT COMMENT** MISC XX SCH (20:12)
[2020-01-12] MEDS: ENOXAPARIN 40MG/0.4ML SYRINGE (J1650 PER 10MG) SC SCH (20:12)
[2020-01-12 22:00] VITALS: BP 135/62
[2020-01-13] MEDS: guaiFENesin 200 MG TAB PO SCH ×6 (00:30→20:32)
[2020-01-13] MEDS: LEVOTHYROXINE 137MCG TABLET (0.137MG) PO SCH (05:34)
[2020-01-13] MEDS: ACETAMINOPHEN 500 MG TAB PO PRN ×2 (05:38→14:03)
[2020-01-13 06:00] VITALS: BP 150/90
[2020-01-13 06:32] LABS: HEMATOCRIT 41.1 % (36.0-47.0); HEMOGLOBIN 13.5 g/dl (12.0-15.5); MEAN CORPUSCULAR HEMOGLOBIN 33.8 pg (27.0-33.0); MEAN CORPUSCULAR HGB CONC 32.8 g/dl (32.0-36.5); PLATELET COUNT, AUTOMATED 219 10^3/uL (150-450); RED BLOOD COUNT 3.99 10^6/uL (4.00-5.40); WHITE BLOOD COUNT 4.6 10^3/uL (4.0-10.0)
[2020-01-13 06:57] LABS: BLOOD UREA NITROGEN 11 MG/DL (7-18); CALCIUM LEVEL 8.8 MG/DL (8.8-10.2); CARBON DIOXIDE LEVEL 28 MEQ/L (21-32); CHLORIDE LEVEL 102 MEQ/L (98-107); CREATININE FOR GFR 0.84 MG/DL (0.55-1.30); GLOMERULAR FILTRATION RATE > 60.0 (>45); GLUCOSE, FASTING 91 MG/DL (70-100); POTASSIUM SERUM 3.4 MEQ/L (3.5-5.1); SODIUM LEVEL 137 MEQ/L (136-145)
[2020-01-13] MEDS ORDERED: POTASSIUM CHLORIDE 10 MEQ SR TABLET PO ONE (07:45)
[2020-01-13] MEDS: FLUoxetine 20 MG CAP PO SCH (08:20)
[2020-01-13] MEDS: CEFDINIR 300 MG CAP (OMNICEF) PO SCH ×2 (08:20→20:32)
[2020-01-13] MEDS: rOPINIRole 1MG TAB PO SCH ×2 (08:20→20:33)
[2020-01-13] MEDS: lisinopriL 5 MG TAB PO SCH (08:20)
[2020-01-13] MEDS: ASPIRIN 81 MG ENTERIC TAB PO SCH (08:20)
[2020-01-13] MEDS: VITAMIN D 1,000 INTERNATIONAL UNITS TABLET PO SCH (08:21)
[2020-01-13] MEDS: DOCUSATE SODIUM 100 MG CAP PO SCH ×2 (08:21→20:32)
[2020-01-13] MEDS: METOPROLOL SUCC *XL* 25MG TAB (TopROL *XL*) PO SCH (08:21)
[2020-01-13] MEDS: MULTIVITAMINS/MINERALS THERAP 1 TAB PO SCH (08:21)
[2020-01-13] MEDS: SODIUM CHLORIDE NASAL 0.65% SPRAY BTL (OCEAN) SCH ×2 (08:22→20:33)
[2020-01-13] MEDS: LIDOCAINE 5% (LIDODERM) PATCH TD SCH (08:22)
[2020-01-13 14:00] VITALS: BP 132/64
[2020-01-13] MEDS: **NOTE PATIENT COMMENT** MISC XX SCH (20:33)
[2020-01-13] MEDS: ENOXAPARIN 40MG/0.4ML SYRINGE (J1650 PER 10MG) SC SCH (20:33)
[2020-01-13] MEDS: SIMVASTATIN 20 MG TAB PO SCH (20:33)
[2020-01-13] MEDS: RAMELTEON 8 MG TAB (ROZEREM) PO PRN (22:02)
[2020-01-14] MEDS: ACETAMINOPHEN 500 MG TAB PO PRN ×2 (00:15→10:40)
[2020-01-14] MEDS: guaiFENesin 200 MG TAB PO SCH ×6 (00:16→20:55)
[2020-01-14] MEDS: LEVOTHYROXINE 137MCG TABLET (0.137MG) PO SCH (05:41)
[2020-01-14 06:00] VITALS: BP 190/108
[2020-01-14] MEDS: METOPROLOL SUCC *XL* 25MG TAB (TopROL *XL*) PO SCH (06:08)
[2020-01-14] MEDS: lisinopriL 5 MG TAB PO SCH (06:08)
[2020-01-14 07:08] LABS: HEMATOCRIT 41.7 % (36.0-47.0); HEMOGLOBIN 13.8 g/dl (12.0-15.5); MEAN CORPUSCULAR HEMOGLOBIN 33.9 pg (27.0-33.0); MEAN CORPUSCULAR HGB CONC 33.1 g/dl (32.0-36.5); MEAN CORPUSCULAR VOLUME 102.5 fl (80.0-96.0); PLATELET COUNT, AUTOMATED 235 10^3/uL (150-450); RED BLOOD COUNT 4.07 10^6/uL (4.00-5.40); WHITE BLOOD COUNT 6.2 10^3/uL (4.0-10.0)
[2020-01-14 07:36] LABS: BLOOD UREA NITROGEN 9 MG/DL (7-18); CALCIUM LEVEL 9.2 MG/DL (8.8-10.2); CARBON DIOXIDE LEVEL 27 MEQ/L (21-32); CHLORIDE LEVEL 102 MEQ/L (98-107); CREATININE FOR GFR 0.86 MG/DL (0.55-1.30); GLOMERULAR FILTRATION RATE > 60.0 (>45); GLUCOSE, FASTING 102 MG/DL (70-100); POTASSIUM SERUM 3.7 MEQ/L (3.5-5.1); SODIUM LEVEL 135 MEQ/L (136-145)
[2020-01-14] MEDS: VITAMIN D 1,000 INTERNATIONAL UNITS TABLET PO SCH (09:56)
[2020-01-14] MEDS: ASPIRIN 81 MG ENTERIC TAB PO SCH (09:56)
[2020-01-14] MEDS: DOCUSATE SODIUM 100 MG CAP PO SCH ×2 (09:56→20:57)
[2020-01-14] MEDS: CEFDINIR 300 MG CAP (OMNICEF) PO SCH ×2 (09:56→21:03)
[2020-01-14] MEDS: rOPINIRole 1MG TAB PO SCH ×2 (09:56→20:54)
[2020-01-14] MEDS: LIDOCAINE 5% (LIDODERM) PATCH TD SCH (09:57)
[2020-01-14] MEDS: MULTIVITAMINS/MINERALS THERAP 1 TAB PO SCH (09:57)
[2020-01-14] MEDS: SODIUM CHLORIDE NASAL 0.65% SPRAY BTL (OCEAN) SCH ×2 (09:57→20:57)
[2020-01-14] MEDS: FLUoxetine 20 MG CAP PO SCH (09:57)
[2020-01-14] MEDS: MIRALAX *UNIT DOSE* 17GM PACKET PO PRN (13:58)
[2020-01-14] MEDS: SIMVASTATIN 20 MG TAB PO SCH (20:54)
[2020-01-14] MEDS: RAMELTEON 8 MG TAB (ROZEREM) PO PRN (20:55)
[2020-01-14] MEDS: ENOXAPARIN 40MG/0.4ML SYRINGE (J1650 PER 10MG) SC SCH (20:56)
[2020-01-14] MEDS: **NOTE PATIENT COMMENT** MISC XX SCH (20:57)
[2020-01-15] MEDS: guaiFENesin 200 MG TAB PO SCH ×6 (01:00→21:25)
[2020-01-15 06:00] VITALS: BP 165/95
[2020-01-15] MEDS: LEVOTHYROXINE 137MCG TABLET (0.137MG) PO SCH (06:13)
[2020-01-15] MEDS: ACETAMINOPHEN 500 MG TAB PO PRN ×3 (06:13→21:26)
[2020-01-15 07:51] LABS: HEMATOCRIT 44.2 % (36.0-47.0); HEMOGLOBIN 14.3 g/dl (12.0-15.5); MEAN CORPUSCULAR HEMOGLOBIN 32.9 pg (27.0-33.0); MEAN CORPUSCULAR HGB CONC 32.4 g/dl (32.0-36.5); MEAN CORPUSCULAR VOLUME 101.6 fl (80.0-96.0); PLATELET COUNT, AUTOMATED 270 10^3/uL (150-450); RED BLOOD COUNT 4.35 10^6/uL (4.00-5.40); WHITE BLOOD COUNT 6.6 10^3/uL (4.0-10.0)
[2020-01-15 08:03] LABS: BLOOD UREA NITROGEN 7 MG/DL (7-18); CALCIUM LEVEL 9.4 MG/DL (8.8-10.2); CARBON DIOXIDE LEVEL 27 MEQ/L (21-32); CHLORIDE LEVEL 99 MEQ/L (98-107); CREATININE FOR GFR 0.81 MG/DL (0.55-1.30); GLOMERULAR FILTRATION RATE > 60.0 (>45); GLUCOSE, FASTING 93 MG/DL (70-100); POTASSIUM SERUM 3.8 MEQ/L (3.5-5.1); SODIUM LEVEL 135 MEQ/L (136-145)
[2020-01-15] MEDS: LIDOCAINE 5% (LIDODERM) PATCH TD SCH (08:13)
[2020-01-15] MEDS: rOPINIRole 1MG TAB PO SCH ×2 (08:14→21:25)
[2020-01-15] MEDS: MULTIVITAMINS/MINERALS THERAP 1 TAB PO SCH (08:14)
[2020-01-15] MEDS: DOCUSATE SODIUM 100 MG CAP PO SCH ×2 (08:14→21:25)
[2020-01-15] MEDS: VITAMIN D 1,000 INTERNATIONAL UNITS TABLET PO SCH (08:14)
[2020-01-15] MEDS: CEFDINIR 300 MG CAP (OMNICEF) PO SCH ×2 (08:14→21:26)
[2020-01-15] MEDS: ASPIRIN 81 MG ENTERIC TAB PO SCH (08:14)
[2020-01-15] MEDS: FLUoxetine 20 MG CAP PO SCH (08:14)
[2020-01-15] MEDS: METOPROLOL SUCC *XL* 25MG TAB (TopROL *XL*) PO SCH (08:16)
[2020-01-15] MEDS: lisinopriL 5 MG TAB PO SCH (08:17)
[2020-01-15] MEDS: SODIUM CHLORIDE NASAL 0.65% SPRAY BTL (OCEAN) SCH ×2 (08:17→21:26)
[2020-01-15] MEDS: MIRALAX *UNIT DOSE* 17GM PACKET PO PRN (14:24)
[2020-01-15] MEDS: SIMVASTATIN 20 MG TAB PO SCH (21:25)
[2020-01-15] MEDS: ENOXAPARIN 40MG/0.4ML SYRINGE (J1650 PER 10MG) SC SCH (21:25)
[2020-01-15] MEDS: **NOTE PATIENT COMMENT** MISC XX SCH (21:26)
[2020-01-16] MEDS: guaiFENesin 200 MG TAB PO SCH ×6 (01:00→20:08)
[2020-01-16] MEDS: RAMELTEON 8 MG TAB (ROZEREM) PO PRN ×2 (02:07→22:43)
[2020-01-16 06:00] VITALS: BP 161/90
[2020-01-16] MEDS: LEVOTHYROXINE 137MCG TABLET (0.137MG) PO SCH (06:11)
[2020-01-16 07:32] LABS: BLOOD UREA NITROGEN 9 MG/DL (7-18); CALCIUM LEVEL 9.1 MG/DL (8.8-10.2); CARBON DIOXIDE LEVEL 28 MEQ/L (21-32); CHLORIDE LEVEL 102 MEQ/L (98-107); CREATININE FOR GFR 0.84 MG/DL (0.55-1.30); GLOMERULAR FILTRATION RATE > 60.0 (>45); GLUCOSE, FASTING 102 MG/DL (70-100); POTASSIUM SERUM 4.1 MEQ/L (3.5-5.1); SODIUM LEVEL 135 MEQ/L (136-145)
[2020-01-16] MEDS: DOCUSATE SODIUM 100 MG CAP PO SCH ×2 (08:32→20:08)
[2020-01-16] MEDS: METOPROLOL SUCC *XL* 25MG TAB (TopROL *XL*) PO SCH (08:32)
[2020-01-16] MEDS: ASPIRIN 81 MG ENTERIC TAB PO SCH (08:32)
[2020-01-16] MEDS: rOPINIRole 1MG TAB PO SCH ×2 (08:33→20:08)
[2020-01-16] MEDS: FLUoxetine 20 MG CAP PO SCH (08:33)
[2020-01-16] MEDS: LIDOCAINE 5% (LIDODERM) PATCH TD SCH (08:33)
[2020-01-16] MEDS: VITAMIN D 1,000 INTERNATIONAL UNITS TABLET PO SCH (08:33)
[2020-01-16] MEDS: ACETAMINOPHEN 500 MG TAB PO PRN ×2 (08:33→22:44)
[2020-01-16] MEDS: CEFDINIR 300 MG CAP (OMNICEF) PO SCH ×2 (08:33→20:08)
[2020-01-16] MEDS: lisinopriL 5 MG TAB PO SCH (08:33)
[2020-01-16] MEDS: MULTIVITAMINS/MINERALS THERAP 1 TAB PO SCH (08:33)
[2020-01-16] MEDS: SODIUM CHLORIDE NASAL 0.65% SPRAY BTL (OCEAN) SCH ×2 (08:34→20:08)
[2020-01-16] MEDS: ENOXAPARIN 40MG/0.4ML SYRINGE (J1650 PER 10MG) SC SCH (20:08)
[2020-01-16] MEDS: SIMVASTATIN 20 MG TAB PO SCH (20:08)
[2020-01-16] MEDS: **NOTE PATIENT COMMENT** MISC XX SCH (20:09)
[2020-01-17] MEDS: guaiFENesin 200 MG TAB PO SCH ×6 (01:21→20:09)
[2020-01-17] MEDS: LEVOTHYROXINE 137MCG TABLET (0.137MG) PO SCH (05:35)
[2020-01-17 06:00] VITALS: BP 155/88
[2020-01-17] MEDS: ASPIRIN 81 MG ENTERIC TAB PO SCH (10:00)
[2020-01-17] MEDS: DOCUSATE SODIUM 100 MG CAP PO SCH ×2 (10:00→20:09)
[2020-01-17] MEDS: MULTIVITAMINS/MINERALS THERAP 1 TAB PO SCH (10:00)
[2020-01-17] MEDS: rOPINIRole 1MG TAB PO SCH ×2 (10:01→20:10)
[2020-01-17] MEDS: VITAMIN D 1,000 INTERNATIONAL UNITS TABLET PO SCH (10:01)
[2020-01-17] MEDS: FLUoxetine 20 MG CAP PO SCH (10:01)
[2020-01-17] MEDS: LIDOCAINE 5% (LIDODERM) PATCH TD SCH (10:02)
[2020-01-17] MEDS: SODIUM CHLORIDE NASAL 0.65% SPRAY BTL (OCEAN) SCH ×2 (10:02→20:10)
[2020-01-17] MEDS: METOPROLOL SUCC *XL* 25MG TAB (TopROL *XL*) PO SCH (10:04)
[2020-01-17 10:05] VITALS: BP 153/82
[2020-01-17] MEDS: lisinopriL 5 MG TAB PO SCH (10:05)
[2020-01-17] MEDS: ACETAMINOPHEN 500 MG TAB PO PRN (13:15)
[2020-01-17] MEDS: RAMELTEON 8 MG TAB (ROZEREM) PO PRN (20:09)
[2020-01-17] MEDS: ENOXAPARIN 40MG/0.4ML SYRINGE (J1650 PER 10MG) SC SCH (20:09)
[2020-01-17] MEDS: **NOTE PATIENT COMMENT** MISC XX SCH (20:10)
[2020-01-17] MEDS: SIMVASTATIN 20 MG TAB PO SCH (20:10)
[2020-01-18] MEDS: guaiFENesin 200 MG TAB PO SCH ×6 (00:07→21:37)
[2020-01-18] MEDS: ACETAMINOPHEN 500 MG TAB PO PRN ×3 (00:08→21:56)
[2020-01-18] MEDS: LEVOTHYROXINE 137MCG TABLET (0.137MG) PO SCH (05:28)
[2020-01-18 06:00] VITALS: BP 159/89
[2020-01-18] MEDS: VITAMIN D 1,000 INTERNATIONAL UNITS TABLET PO SCH (10:10)
[2020-01-18] MEDS: LIDOCAINE 5% (LIDODERM) PATCH TD SCH (10:10)
[2020-01-18] MEDS: lisinopriL 5 MG TAB PO SCH (10:10)
[2020-01-18] MEDS: ASPIRIN 81 MG ENTERIC TAB PO SCH (10:10)
[2020-01-18] MEDS: DOCUSATE SODIUM 100 MG CAP PO SCH ×2 (10:11→21:38)
[2020-01-18] MEDS: rOPINIRole 1MG TAB PO SCH ×2 (10:11→21:38)
[2020-01-18] MEDS: FLUoxetine 20 MG CAP PO SCH (10:11)
[2020-01-18] MEDS: MULTIVITAMINS/MINERALS THERAP 1 TAB PO SCH (10:11)
[2020-01-18] MEDS: METOPROLOL SUCC *XL* 25MG TAB (TopROL *XL*) PO SCH (10:12)
[2020-01-18] MEDS: SODIUM CHLORIDE NASAL 0.65% SPRAY BTL (OCEAN) SCH ×2 (10:13→21:38)
[2020-01-18] MEDS: RAMELTEON 8 MG TAB (ROZEREM) PO PRN (21:37)
[2020-01-18] MEDS: SIMVASTATIN 20 MG TAB PO SCH (21:38)
[2020-01-18] MEDS: **NOTE PATIENT COMMENT** MISC XX SCH (21:38)
[2020-01-18] MEDS: ENOXAPARIN 40MG/0.4ML SYRINGE (J1650 PER 10MG) SC SCH (21:38)
[2020-01-19] MEDS: guaiFENesin 200 MG TAB PO SCH ×4 (01:19→13:00)
[2020-01-19 06:00] VITALS: BP 135/65
[2020-01-19] MEDS: LEVOTHYROXINE 137MCG TABLET (0.137MG) PO SCH (06:05)
[2020-01-19] MEDS: ACETAMINOPHEN 500 MG TAB PO PRN (06:06)
[2020-01-19] MEDS: rOPINIRole 1MG TAB PO SCH (08:18)
[2020-01-19] MEDS: FLUoxetine 20 MG CAP PO SCH (08:18)
[2020-01-19] MEDS: DOCUSATE SODIUM 100 MG CAP PO SCH (08:18)
[2020-01-19] MEDS: VITAMIN D 1,000 INTERNATIONAL UNITS TABLET PO SCH (08:18)
[2020-01-19] MEDS: MULTIVITAMINS/MINERALS THERAP 1 TAB PO SCH (08:18)
[2020-01-19] MEDS: ASPIRIN 81 MG ENTERIC TAB PO SCH (08:18)
[2020-01-19] MEDS: lisinopriL 5 MG TAB PO SCH (08:18)
[2020-01-19] MEDS: METOPROLOL SUCC *XL* 25MG TAB (TopROL *XL*) PO SCH (08:19)
[2020-01-19] MEDS: LIDOCAINE 5% (LIDODERM) PATCH TD SCH (08:19)
[2020-01-19] MEDS: SODIUM CHLORIDE NASAL 0.65% SPRAY BTL (OCEAN) SCH (08:20)
[2020-01-19] MEDS ORDERED: ASPI81TAEC PO (12:20)
[2020-01-19] MEDS ORDERED: LIDO5TD TD (12:20)
[2020-01-19] MEDS ORDERED: LISI-542 PO (12:20)
[2020-01-19] MEDS ORDERED: DOCU100C16 PO (12:48)
[2020-01-19] MEDS ORDERED: METO1TAB87 PO (12:48)
[2020-01-19] MEDS ORDERED: SIMV20TA22 PO (12:48)
[2020-01-19] MEDS ORDERED: FLUO20CA22 PO (12:48)
[2020-01-19] MEDS ORDERED: XANA0.5T PO (12:48)
[2020-01-19] MEDS ORDERED: MULT-90 PO (12:48)
[2020-01-19] MEDS ORDERED: GUAI20TA PO (12:48)
[2020-01-19] MEDS ORDERED: ROPI1TAB3 PO (12:48)
[2020-01-19] MEDS ORDERED: SYNT137T7 PO (12:48)
[2020-01-19] MEDS ORDERED: D 10TAB2 PO (12:48)
[2020-01-19] MEDS ORDERED: LIDO5OIN19 TOP (14:01)
--- NOTE | 2020-01-19 15:12 | DS.PDOC ---
Discharge Summary General Date of Admission Jan 09, 2020 at 15:29 Date of Discharge 01/19/20 Discharge Summary DISCHARGE DIAGNOSES: Generalized weakness Hypothyroidism urinary tract infection Abdominal aortic aneurysm 4.6 cm infrarenal 4.8 cm with eccentric calcified and soft plaque no progression from 06/24/2019 Nasal congestion History of CAD status post CABG Anxiety, depression Bedbugs DISCHARGE MEDICATIONS: Please see below. Discharge instructions: primary care physician appointment within 1 week, primary care physician to have repeat ultrasound of the abdomen to monitor patient's infrarenal abdominal aortic aneurysm . [facility] surgery at [facility] is following her abdominal aortic aneurysm but was lost to follow-up HOSPITAL COURSE: 64-year-old female admitted on 01/09/2020 with complaints of generalized weakness after being out of her medications for hypothyroidism for about 3 weeks. Patient has been noncompliant, has not taken her Synthroid for about 2-3 months. She complained of feeling weak and dizzy with chills and cold intolerance. In the ER, patient's TSH was 59 with free T4 of 0.15. Patient was restarted back on her home dose of Synthroid 137 g daily, metoprolol for hypertension and for better control. Lisinopril was added. CT abdomen and pelvis was negative for acute process. Patient had group B strep agalactiae on the urine culture. Treated with Omnicef, which she completed as an inpatient. Patient was afebrile with no white count. , She had episodes of nasal congestion which improved with nasal spray. She is medically stable for hospital discharge LABORATORY DATA: Please see below. IMAGING: INDICATION: known AAA, weakness, back pain. COMPARISON: Abdominal aortic ultrasound 06/24/2019, MRI lumbar spine T2 sagittal sequence [id number] TECHNIQUE: Bolus of 100 mL Isovue 370 with scanning through the abdomen in axial projection and both coronal and sagittal standard and coronal MIP reformats provided. FINDINGS: The lung bases were clear. The heart is enlarged with prior mitral valve the surgery evident. Left atrium and left ventricle prominent no pericardial thickening or effusion. No hiatal hernia. The liver is not enlarged. No splenomegaly, ascites in the upper abdomen or focal lesion in either of these organs. Gallbladder without calcified stone or mass adrenal glands, pancreas and kidneys grossly unremarkable. Abdominal aorta shows tortuosity and atherosclerotic calcific plaque scattered throughout. It is infrarenal aneurysm has a maximum AP diameter of 4.6 cm in the infrarenal aorta in a transverse diameter 4.8 cm. Eccentric plaque is noted. There is no evidence of a retroperitoneal leak. Atherosclerotic calcifications extend into the common and external iliacs as well as the internal iliac arteries the common iliacs maintain flow and there is some stenosis in the proximal right internal iliac artery with poststenotic dilatation and maximum diameter up to 15 mm no mesenteric, retroperitoneal or periaortic adenopathy. There is no perforation or free air. No ascites in the abdomen. Small bowel loops and colon are unremarkable. Bone windows show degenerative disc changes lower lumbar spine with a few mm of anterolisthesis of L4 on L5 from facet arthritis, no spondylolysis. Sclerotic area in the inferior aspect of the T10 vertebral body is unchanged dating back to a CT chest of 04/02/2012 and represents a degenerative change. IMPRESSION: 1. Infrarenal abdominal aortic aneurysm with maximum AP diameter 4 point 6 cm in transverse diameter 4.8 cm with eccentric calcific and soft plaque evident. I do not see evidence of acute dissection, retroperitoneal bleed or aortic leak. The least a 9 cm length from the infrarenal region to the bifurcation with a fusiform appearance of the aneurysm. No retroperitoneal bleed or leak. No significant progression in size from and ultrasound on 06/24/2019. 2. Atherosclerotic calcification and plaque in the common and internal iliacs as well as external iliac arteries with ectasia but no aneurysm. 3. No other significant or acute finding. <Electronically signed by Holger Weber > 01/09/20 1520 PROGNOSIS: INDICATION: weakness. COMPARISON: 06/23/2017 two-view chest TECHNIQUE: AP portable upright FINDINGS: Sternotomy wires are again seen with cardiac valve the surgery. Heart is mildly prominent even allowing for AP portable lordotic technique. There is venous hypertension. Some underlying fibrosis makes early interstitial edema difficult to exclude. No gross infiltrate or effusion. A tortuous calcified ectatic aorta again seen and unchanged. Mediastinal with unchanged allowing for lordotic portable technique. The bones show no acute finding. No free air under the diaphragm. IMPRESSION: 1. Some mild cardiomegaly with prior cardiac valve surgery. Evidence for pulmonary venous hypertension. Early interstitial edema difficult to exclude in the setting of mild fibrosis. 2. No dense consolidation, effusion, parenchymal mass, pleural thickening or o ther new/acute finding. 3. Tortuous, calcified ectatic aorta with no change from previous studies. Bones intact. <Electronically signed by Holger Weber > 01/09/20 0369 TIME SPENT ON DISCHARGE: 30minutes. Vital Signs/I&Os Vital Signs Date Time Temp Pulse Resp B/P (MAP) Pulse Ox O2 Delivery O2 Flow Rate FiO2 01/19/20 06:00 97.8 79 19 135/65 (88) 99 Room Air I&O- Last 24 Hours up to 6 AM 01/19/20 06:00 Intake Total 1220 ml Output Total 600 ml Balance 620 ml Microbiology Microbiology 01/10/20 Urine Culture - Final, Complete Strep Agalactiae Group B Discharge Medications Scheduled Aspirin (Aspirin EC) 81 Mg Tablet.dr, 81 MG PO DAILY Cholecalciferol (Vitamin D3) (Vitamin D3) 1,000 Unit Tablet, 1,000 UNITS PO DAILY, (Reported) Docusate Sodium (Docusate Sodium) 100 Mg Capsule, 100 MG PO BID Fluoxetine Hcl (Fluoxetine HCl) 20 Mg Capsule, 20 MG PO DAILY, (Reported) Fluoxetine Hcl (Fluoxetine HCl) 20 Mg Capsule, 20 MG PO DAILY Guaifenesin (Guaifenesin) 200 Mg Tablet, 200 MG PO Q4H Levothyroxine Sodium (Synthroid) 137 Mcg Tablet, 137 MCG PO DAILY, (Reported) Levothyroxine Sodium (Synthroid) 137 Mcg Tablet, 137 MCG PO DAILY Lidocaine (Lidocaine) 120 Gm Oint...g., 1 APLCT TOP TID TO AFFECTED AREAS ON BACK. Lisinopril (Lisinopril) 5 Mg Tablet, 5 MG PO DAILY Metoprolol Succinate (Metoprolol Succinate) 25 Mg Tab.er.24h, 25 MG PO DAILY, (Reported) Metoprolol Tartrate (Metoprolol Tartrate) 25 Mg Tablet, 1 TAB PO DAILY Multivitamin (Multivitamins) 1 Each Tablet, 1 TAB PO DAILY, (Reported) Multivitamin (Multivitamin) 1 Each Tablet, 1 EACH PO DAILY Ropinirole HCl (Ropinirole HCl) 1 Mg Tablet, 1 MG PO BID, (Reported) Ropinirole HCl (Ropinirole HCl) 1 Mg Tablet, 1 TAB PO BID Simvastatin (Simvastatin) 20 Mg Tablet, 20 MG PO QHS, (Reported) Simvastatin (Simvastatin) 20 Mg Tablet, 20 MG PO QPM Scheduled PRN Acetaminophen (Acetaminophen) 500 Mg Tablet, 1,000 MG PO Q8H PRN for PAIN / FEVER, (Reported) Alprazolam (Alprazolam) 0.5 Mg Tablet, 0.5 MG PO TID PRN for ANXIETY, (Reported) Alprazolam (Xanax) 0.5 Mg Tablet, 0.5 MG PO TIDP PRN for anxiety Calcium No.1/D3/B6/FA/B12/Aloe (Vitamin D3-Aloe 1,000 Unit Tab) 1 Each Tablet, 1 TAB PO DAILY PRN for 0 Hydrocodone/Acetaminophen (Hydrocodone-Acetamin 5-325 mg) 1 Tab Tab, 1 TAB PO BID PRN for PAIN, (Reported) Allergies Coded Allergies: Sulfa (Sulfonamide Antibiotics) (Verified Allergy, Intermediate, 07/11/19) TOPHER MILES MD Jan 19, 2020 15:12
== END 2020-01-19 13:59 | disposition home health service (06) | DRG 463 ==
LOC: M ED 08:01 → EDBD 08:01 → M ED INP 15:29 → ENRESERV 15:40 → M MSPAV 17:43
PROVIDERS: ADMIT Internal Medicine; ATTEND General Practice
DX: N39.0 Urinary tract infection, site not specified (principal); I10 Essential (primary) hypertension; R53.1 Weakness; E03.9 Hypothyroidism, unspecified; I25.10 Atherosclerotic heart disease of native coronary artery without angina pectoris; I71.4 Abdominal aortic aneurysm, without rupture; F32.9 Major depressive disorder, single episode, unspecified; F41.9 Anxiety disorder, unspecified; F17.200 Nicotine dependence, unspecified, uncomplicated; M54.5 Low back pain; E78.5 Hyperlipidemia, unspecified; Z79.899 Other long term (current) drug therapy; Z88.2 Allergy status to sulfonamides; Z91.128 Patient's intentional underdosing of medication regimen for other reason; Z95.1 Presence of aortocoronary bypass graft; Z79.82 Long term (current) use of aspirin; B95.1 Streptococcus, group B, as the cause of diseases classified elsewhere; R09.81 Nasal congestion; Z20.828 Contact with and (suspected) exposure to other viral communicable diseases; T38.1X6A Underdosing of thyroid hormones and substitutes, initial encounter

== ENCOUNTER → 2020-04-24 | Outpatient (CLI) | payer OTHER ==
[~2020-04-24] MED LIST changes: +ACET-683 PO; +ALPR0.5T3 PO; +ASPI81TAEC PO; +D 10TAB2 PO; +D31000TA2 PO; +DOCU100C16 PO; +FLUO20CA22 PO; +GUAI20TA PO; +LIDO5OIN19 TOP; +LIDO5TD TD; +LISI-898 PO; +METO1TAB32 PO; +METO1TAB87 PO; +MULT-40 PO; +MULT-90 PO; -RAMELTEON 8 MG TAB (ROZEREM) PO ONE; +ROPI1TAB3 PO; +SIMV20TA22 PO; +SYNT137T7 PO; +XANA0.5T PO
--- NOTE | 2020-04-29 23:47 | ECWPNPC ---
PATIENT NAME: RICK LANGSTON : 1955 GENDER: FEMALE VISIT DATE: 04/24/2020 DISCHARGE DATE: 04/24/20 1426 VISIT LOCKED DATE TIME: PHYSICIAN: MERYL CLINE RESOURCE: MERYL CLINE REASON FOR APPOINTMENT 1. NPC: CHRONIC BACK PAIN/NECK PAIN HISTORY OF PRESENT ILLNESS DEPRESSION SCREENING: PHQ-2 (2015 EDITION) LITTLE INTEREST OR PLEASURE IN DOING THINGS?NOT AT ALL FEELING DOWN, DEPRESSED, OR HOPELESS?SEVERAL DAYS TOTAL SCORE1 GENERAL: PLEASANT 64-YEAR-OLD FEMALE REFERRED BY [facility] TO EVALUATE CHRONIC LOW BACK PAIN. REPORTS LONG HISTORY OF LOW BACK PAIN AND RIGHT LEG RADICULAR SYMPTOMS. WORKS CLEANING HOUSES FOR MANY YEARS AND FEELS THOUGH HEAVY LIFTING AGGRAVATED LOW BACK PAIN. CURRENTLY TRIED ON TRAMADOL WITHOUT IMPROVEMENT. CURRENTLY TAKING GABAPENTIN 100 MG 3 TIMES A DAY THAT WAS RECENTLY STARTED AND FINDS THIS MEDICATION SOMEWHAT HELPFUL. REVIEWED MRI OF LUMBOSACRAL SPINE AND DISCUSSED TREATMENT OPTIONS.- - -. FALL RISK SCREENING: SCREENING :NO FALLS REPORTED IN THE LAST YEAR PAIN SCREENING: PATIENT HAS A COMPLAINT OF ACUTE OR CHRONIC PAIN :YES LOCATION OF PAIN:LOW BACK, LEG(S) INTENSITY OF PAIN (SCALE OF 1 TO 10):8 WHAT DOES YOUR PAIN FEEL LIKE:BURNING, CONTINOUS, STABBING, THROBBING DURATION:CONSTANT, AWAKENS FROM SLEEP PAIN IS INCREASED BY:ACTIVITIES, PROLONGED STANDING PAIN IS DECREASED BY:OTHERS ICE NURSING NOTE: - - -. PAIN CENTER INTAKE QUESTIONS: DO YOU HAVE A HISTORY OF MRSA? :NO DO YOU TAKE A BLOOD THINNERS? :NO 81 MG ASPIRIN DAILY DO YOU HAVE ANY BLEEDING DISORDERS? :NO ANY NEW NUMBNESS OR WEAKNESS IN YOUR LEGS OR ARMS? :NO ANY PACEMAKER,DEFIBRILLATOR, OR DORSAL COLUMN STIMULATOR? :NO DO YOU HAVE ANY RASHES OR OPEN SORES? :NO ARE YOU ALLERGIC TO IV DYE? :NO ARE YOU DIABETIC? :NO ANY NEW PROBLEMS WITH YOUR MEDICATIONS? :NO HAVE YOU RECEIVED A VACCINE IN THE PAST 30 DAYS? :NO DO YOU PLAN TO RECEIVE A VACCINE IN THE NEXT 21 DAYS? :NO DO YOU NEED ANY PRESCRIPTION? :NO DO YOU TAKE ANY IMMUNOSUPPRESSIVE MEDICATIONS? :NO IS THERE A CHANCE YOU COULD BE ? :NO ARE YOU BREAST FEEDING? :NO CURRENT MEDICATIONS TAKING GABAPENTIN 100 MG CAPSULE TAKE ONE CAPSULE BY MOUTH THREE TIMES A DAY ORAL TAKING LEVOTHYROXINE SODIUM 137 MCG TABLET TAKE ONE TABLET BY MOUTH EVERY MORNING ON AN EMPTY STOMACH ORAL TAKING TRAMADOL HCL 50 MG TABLET (SCHEDULE IV DRUG) TAKE ONE TABLET BY MOUTH TWICE A DAY NEEDED MAXIMUM DAILY DOSE 2 ORAL TAKING FLUOXETINE HCL 40 MG CAPSULE TAKE ONE CAPSULE BY MOUTH EVERY DAY ORAL TAKING METOPROLOL TARTRATE 25 MG TABLET TAKE ONE TABLET BY MOUTH EVERY DAY ORAL TAKING SIMVASTATIN 20 MG TABLET TAKE ONE TABLET BY MOUTH IN THE EVENING ORAL TAKING DAILY-CAM[place] - TABLET TAKE ONE TABLET BY MOUTH EVERY DAY ORAL TAKING DOK 100 MG CAPSULE TAKE ONE CAPSULE BY MOUTH TWICE A DAY ORAL TAKING ASPIRIN 81 81 MG TABLET DELAYED RELEASE 1 TABLET ORALLY ONCE A DAY NOT-TAKING ROPINIROLE HCL 1 MG TABLET TAKE ONE TABLET BY MOUTH TWICE A DAY ORAL NOT-TAKING ALPRAZOLAM 0.5 MG TABLET (SCHEDULE IV DRUG) TAKE ONE TABLET BY MOUTH THREE TIMES A DAY NEEDED FOR ANXIETY MAXIMUM DAILY DOSE 3 ORAL MEDICATION LIST REVIEWED AND RECONCILED WITH THE PATIENT PAST MEDICAL HISTORY VITAMIN D DEFICIENCY HYPERLIPIDEMIA ANEMIA ANXIETY DEPRESSIVE HYPERTENSIVE ACUTE SINUSITIS ACUTE SCIATICA BACKACHE FUNCTIONAL HEART MURMUR PAIN IN RIGHT KNEE CORONARY HEART DISEASE PAIN IN RIGHT HAND IMPACTED CERMEN OF BILATERAL EARS HYPOTHYROIDISM ARTHRITS HANDS CHRONIC BACK PAIN SCIATIC POST MENOPAUSAL NECK PAIN ALLERGIES SULFONAMIDE ANTIBIOTICS: ITCHING - ALLERGY SEASONAL: HIVES SURGICAL HISTORY CABG 2013 FAMILY HISTORY FATHER: 60 YRS, [place] SOCIAL HISTORY GENERAL: TOBACCO USE ARE YOU A:FORMER SMOKER VAPORYES E-CIGARETTEYES LATEX QUESTIONNAIRE LATEX ALLERGY : HAVE YOU EVER DEVELOPED ANY TYPE OF REACTION AFTER HANDLING LATEX PRODUCTS SUCH RUBBER GLOVES, CONDOMS, DIAPHRAGMS, BALLOONS, SOCKS, OR UNDERWEAR?NO LATEX ALLERGY : HAVE YOU EVER DEVELOPED ANY TYPE OF REACTION DURING OR AFTER DENTAL APPOINTMENT, VAGINAL/RECTAL EXAMINATION, SURGICAL PROCEDURE, OR ANY OTHER EXPOSURE?NO LATEX RISK : HAVE YOU EVER HAD ANY DIFFICULTY BREATHING OR HIVES AFTER EATING OR HANDLING ANY FRUITS, OR VEGETABLES; SUCH KIWI, BANANAS, STONE FRUITS, OR CHESTNUTSNO LATEX RISK : DO YOU HAVE A PREVIOUS PERSONAL HISTORY OF MORE THAN NINE SURGERIES, SPINA BIFIDA, OR REPEATED CATHERIZATIONS? NO LATEX RISK : ARE YOU FREQUENTLY EXPOSED TO LATEX PRODUCTS IN YOUR OCCUPATION?NO DATE ASKED : 04/24/2020 ALCOHOL USE: NO. RECREATIONAL DRUG USE DRUG USE?NO LANGUAGE LANGUAGES SPOKEN:YI LEARNING BARRIERS / SPECIAL NEEDS BARRIERS TO LEARNING?NO HEARING IMPAIRED?NO VISION IMPAIRED?YES COGNITIVELY IMPAIRED?NO READINESS TO LEARN?YES LEARNING PREFERENCES?NO LEARNING CAPABILITIES PRESENT?YES EMOTIONAL BARRIERS?YES ANXIETY, DEPRESSION SPECIAL DEVICES?NO PRINTER SLOTTER HELPER NEEDED?NO MARITAL STATUS: .. HOSPITALIZATION/MAJOR DIAGNOSTIC PROCEDURE HIGH THYROID LEVEL 01/19/20 REVIEW OF SYSTEMS CONSTITUTIONAL: ANY RECENT FEVER NO . CHILLS NO . WEIGHT CHANGE OF UNKNOWN REASONS NO . GASTROENTEROLOGY: NEW UNEXPLAINABLE CHANGES IN BOWEL CONTROL NO . CONSTIPATION NO . GENITOURINARY: ANY NEW CHANGE IN BLADDER CONTROL? NO . NEUROLOGY: NEW ONSET DIZZINESS OR NEUROLOGICAL CHANGES NOT MENTIONED NO . NEW NUMBNESS OR PAIN PATTERNS NOT MENTIONED AND PERTINENT TO TODAY'S VISIT NO . CARDIOLOGY: NEW CHEST PRESSURE NO . PATIENT DENIES NO . RESPIRATORY: UNEXPLAINABLE COUGH NO . NEW SHORTNESS OF BREATH NO . VITAL SIGNS WT 191.2 LBS, HT 63 IN, BMI 33.87 INDEX, BP 175/81 DINAMAP LEFT ARM, REPEAT BP 122/88 MANUAL RIGHT ARM, HR 108 /MIN, RR 18 /MIN, TEMP 98.5 F, OXYGEN SAT % 96%, SAFE IN ENV? (Y/N) YES, REVIEWED BY: VALERY RAINEY MA. EXAMINATION GENERAL EXAMINATION: GENERALNO ACUTE DISTRESS, WELL NOURISHED AND HYDRATED. PSYCHAPPROPRIATE MOOD AND AFFECT . NECK:NO LYMPHADENOPATHY, SUPPLE, . LUNGS:CLEAR TO AUSCULTATION BILATERALLY, NO WHEEZES, RHONCHI, RALES. HEART:IRREGULAR HEART RHYTHM. . MUSCULOSKELETAL:WEAKNESS NOTED OVER RIGHT LEG . LUMBAR:POINT TENDERNESS NOTED OVER BILATERAL SIJ . TENDERNESS OVER ENTIRE L/S AXIS AND LUMBAR PARASPINALS BILATERALLY . DIAGNOSTIC TESTS REVIEWEDMRI L/S SPINE 2017 . ASSESSMENTS DEGENERATIVE LUMBAR SPINAL STENOSIS - M48.061 (PRIMARY) LUMBOSACRAL RADICULOPATHY - M54.17 TREATMENT DEGENERATIVE LUMBAR SPINAL STENOSIS INCREASE GABAPENTIN CAPSULE, 300 MG, 1 CAP, ORALLY, BID, 30 DAYS, 60 CAPSULE, REFILLS 2 STOP TRAMADOL HCL TABLET, 50 MG, (SCHEDULE IV DRUG) TAKE ONE TABLET BY MOUTH TWICE A DAY NEEDED MAXIMUM DAILY DOSE 2, ORAL START HYDROCODONE-ACETAMINOPHEN TABLET, 5-325 MG, 1 TABLET NEEDED, ORALLY, Q8H PRN MDD3 #45 TAB SHOULD LAST 30 DAYS, 30 DAYS, 45, REFILLS 0 NOTES: I'VE AGREED TO TAKE OVER MEDICATION MANAGEMENT FOR CHRONIC LOW BACK PAIN. WE HAD A LONG DISCUSSION ABOUT CLINIC POLICIES AND MY RECOMMENDATIONS FOR PERIODIC USE AND NOT DAILY USE OF HYDROCODONE 5/325 FOR SEVERE PAIN EPISODES #45 TABLETS SHOULD LAST 30 DAYS. ADVISED TO BRING HER PAIN MEDICATION INTO EVERY VISIT. RECOMMEND INCREASING GABAPENTIN TO 300 MG TWICE A DAY. FOLLOW-UP AT PAIN CENTER IS SCHEDULED IN 8-10 WEEKS. , [employer] REGISTRY REVIEWED AND DEMONSTRATES COMPLLIANCE. , [facility] NARCOTIC AGREEMENT WAS REVIEWED AND SIGNED TODAY BY THE PATIENT. SEE ATTACHED DOCUMENT FOR FULL DETAILS; SPECIFIC ISSUES WERE REVIEWED: 1) KEEP PAIN MEDS IN THEIR ORIGINAL BOTTLES AND ANY WEEKLY PLANNERS ARE TO BE BROUGHT TO THE PAIN CENTER AT EVERY VISIT. 2) THE PATIENT IS NOT TO INCREASE DOSING OR TIMING OF THEIR PAIN MEDICATION WITHOUT SPECIFIC DIRECTION OF THEIR PAIN CENTERPROVIDER (NOT ER OR OTHER PROVIDERS). 3) ALL PAIN MEDS ARE TO BE KEPT SECURED, IN A LOCKED BOX. 4) NO PAIN MEDS ARE TO BE SHARED WITH ANY OTHER PERSON FOR ANY REASON. 5) NO PAIN MEDS MAY BE TAKEN FROM ANY FRIENDS OR RELATIVES FOR ANY REASON 6) NO MEDS OR SUBSTANCES WHICH ARE NOT LEGAL ARE TO BE USED- NO MARIJUANA, NO COCAINE, AMPHETAMINES, HEROIN, OR OTHERS ARE EVER TO BE USED. 7)URINE TESTING IS DONE TO ACCOUNT FOR MEDS AND SUBSTANCES BEING TAKEN AND WILL BE DONE RANDOMLY. CLINICAL NOTES: MEDICATION INFORMATION PROVIDED FOR AND GIVEN TO PATIENT. PATIENT VERBALIZED UNDERSTANDNG. ZIGGY RAINEY MA . PROCEDURE CODES FA211 ESTABILISHED PATIENT [facility] FACILITY CHARGE DISPOSITION & COMMUNICATION FOLLOW UP 8-10 WEEKS (REASON: MEDICATION MANAGEMENT/URINE TOXICOLOGY/INCREASED GABAPENTIN AT INITIAL VISIT/STARTED ON HYDROCODONE) ELECTRONICALLY SIGNED BY ULYSSES PENN ON 04/29/2020 AT 08:15 PM EST DISCLAIMER : THIS IS A VISIT SUMMARY EXTRACTED FROM THE [employer] CHART. IT IS NOT A COPY OF THE [employer] PROGRESS NOTE. REBECCA
== END ==
LOC: M PAIN 13:00
PROVIDERS: ATTEND Nurse Practitioner Family
DX: M48.061 Spinal stenosis, lumbar region without neurogenic claudication (principal); M54.17 Radiculopathy, lumbosacral region; E55.9 Vitamin D deficiency, unspecified; E78.5 Hyperlipidemia, unspecified; D64.9 Anemia, unspecified; F41.9 Anxiety disorder, unspecified; F32.9 Major depressive disorder, single episode, unspecified; E03.9 Hypothyroidism, unspecified; Z87.891 Personal history of nicotine dependence; Z79.82 Long term (current) use of aspirin; Z79.899 Other long term (current) drug therapy; Z79.891 Long term (current) use of opiate analgesic; Z88.2 Allergy status to sulfonamides; J30.2 Other seasonal allergic rhinitis

== ENCOUNTER → 2020-06-08 | Outpatient (REF) | payer OTHER ==
[~2020-06-08] MED LIST changes: +ASPI-569 PO; -ASPI81TAEC PO
[2020-06-08 17:23] LABS: BASO # 0.1 10^3/uL (0.0-0.2); BASO % 1.4 % (0.0-1.0); EOS # 0.3 10^3/uL (0.0-0.5); EOS % 3.6 % (0.0-3.0); HEMOGLOBIN 12.8 g/dl (12.0-15.5); LYMPH # 1.9 10^3/uL (1.5-5.0); LYMPH % 26.1 % (24.0-44.0); MEAN CORPUSCULAR HEMOGLOBIN 29.1 pg (27.0-33.0); MEAN CORPUSCULAR HGB CONC 31.2 g/dl (32.0-36.5); MEAN CORPUSCULAR VOLUME 93.2 fl (80.0-96.0); MONO # 0.6 10^3/uL (0.0-0.8); MONO % 8.5 % (2.0-8.0); NEUTROPHILS # 4.3 10^3/uL (1.5-8.5); NEUTROPHILS % 59.8 % (36.0-66.0); PLATELET COUNT, AUTOMATED 255 10^3/uL (150-450); WHITE BLOOD COUNT 7.2 10^3/uL (4.0-10.0)
[2020-06-08 17:28] LABS: ALBUMIN 3.9 GM/DL (3.2-5.2); BILIRUBIN,TOTAL 0.2 MG/DL (0.2-1.0); CALCIUM LEVEL 9.1 MG/DL (8.8-10.2); CHOLESTEROL RISK RATIO 3.508 (<5); CREATININE FOR GFR 1.01 MG/DL (0.55-1.30); GLOMERULAR FILTRATION RATE 59.1 (>45); POTASSIUM SERUM 4.6 MEQ/L (3.5-5.1); THYROID STIMULATING HORMONE 7.87 uIU/ML (0.358-3.740); TOTAL PROTEIN 7.4 GM/DL (6.4-8.2)
== END ==
LOC: M LAB REF 16:09
PROVIDERS: ATTEND Physician Assistant
DX: E78.5 Hyperlipidemia, unspecified (principal); E03.9 Hypothyroidism, unspecified

== ENCOUNTER → 2020-08-04 | Outpatient (CLI) | payer OTHER ==
--- NOTE | 2020-08-08 01:02 | ECWPNPC ---
PATIENT NAME: RICK LANGSTON : 1955 GENDER: FEMALE VISIT DATE: 08/04/2020 DISCHARGE DATE: 08/04/20 1441 VISIT LOCKED DATE TIME: PHYSICIAN: MERYL CLINE RESOURCE: MERYL CLINE REASON FOR APPOINTMENT 1. MEDICATION MANAGEMENT/URINE TOXICOLOGY/INCREASED GABAPENTIN AT INITIAL VISIT/STARTED ON HYDROCODONE HISTORY OF PRESENT ILLNESS GENERAL: HERE FOR FOLLOW-UP AFTER INITIAL VISIT FOR CHRONIC LOW BACK PAIN. WE STARTED HER ON HYDROCODONE/ACETAMINOPHEN 5/325 #45 TABLETS FOR 30 DAY SUPPLY AND INCREASED GABAPENTIN TO 300 MG TWICE A DAY. PATIENT IS VERY HAPPY WITH MEDICATION. STATES THAT SHE'S ABLE TO TOLERATE ACTIVITIES I.E. CLEANING THE HOUSE FOR LONGER PERIODS OF TIME WITHOUT HAVING TO SIT DOWN. DENIES ADVERSE SIDE EFFECTS WITH HER MEDICATION. FORGOT TO BRING IN HER MEDICINE TODAY. SHE IS IN THE PROCESS OF MOVING. TODAY WE WILL GET A URINE TOXICOLOGY AND PLAN ON SEEING HER BACK IN 2 MONTHS. -. FALL RISK SCREENING: SCREENING : NO FALLS REPORTED IN THE LAST YEAR. PAIN SCREENING: PATIENT HAS A COMPLAINT OF ACUTE OR CHRONIC PAIN :YES LOCATION OF PAIN:NECK, LOW BACK INTENSITY OF PAIN (SCALE OF 1 TO 10):7 WHAT DOES YOUR PAIN FEEL LIKE:TENDER, SHOOTING DURATION:CONSTANT, MAINLY DURING THE NIGHT, INTERMITTENT PAIN IS INCREASED BY:ACTIVITIES PAIN IS DECREASED BY:USE OF PAIN MEDICATIONS NURSING NOTE: -. PAIN CENTER INTAKE QUESTIONS: DO YOU HAVE A HISTORY OF MRSA? :NO DO YOU TAKE A BLOOD THINNERS? :NO 81 MG ASPIRIN DAILY DO YOU HAVE ANY BLEEDING DISORDERS? :NO ANY NEW NUMBNESS OR WEAKNESS IN YOUR LEGS OR ARMS? :NO ANY PACEMAKER,DEFIBRILLATOR, OR DORSAL COLUMN STIMULATOR? :NO DO YOU HAVE ANY RASHES OR OPEN SORES? :NO ARE YOU ALLERGIC TO IV DYE? :NO ARE YOU DIABETIC? :NO ANY NEW PROBLEMS WITH YOUR MEDICATIONS? :NO HAVE YOU RECEIVED A VACCINE IN THE PAST 30 DAYS? :YES 1ST COVID DO YOU PLAN TO RECEIVE A VACCINE IN THE NEXT 21 DAYS? :NO DO YOU NEED ANY PRESCRIPTION? :NO DO YOU TAKE ANY IMMUNOSUPPRESSIVE MEDICATIONS? :NO IS THERE A CHANCE YOU COULD BE ? :NO ARE YOU BREAST FEEDING? :NO CURRENT MEDICATIONS TAKING LEVOTHYROXINE SODIUM 137 MCG TABLET TAKE ONE TABLET BY MOUTH EVERY MORNING ON AN EMPTY STOMACH ORAL TAKING FLUOXETINE HCL 40 MG CAPSULE TAKE ONE CAPSULE BY MOUTH EVERY DAY ORAL TAKING METOPROLOL TARTRATE 25 MG TABLET TAKE ONE TABLET BY MOUTH EVERY DAY ORAL TAKING SIMVASTATIN 20 MG TABLET TAKE ONE TABLET BY MOUTH IN THE EVENING ORAL TAKING DAILY-[place] - TABLET TAKE ONE TABLET BY MOUTH EVERY DAY ORAL TAKING DOK 100 MG CAPSULE TAKE ONE CAPSULE BY MOUTH TWICE A DAY ORAL TAKING ASPIRIN 81 81 MG TABLET DELAYED RELEASE 1 TABLET ORALLY ONCE A DAY TAKING GABAPENTIN 300 MG CAPSULE 1 CAP ORALLY BID TAKING HYDROCODONE-ACETAMINOPHEN 5-325 MG TABLET 1 TABLET NEEDED ORALLY Q8H PRN MDD3 #45 TAB SHOULD LAST 30 DAYS NOT-TAKING ROPINIROLE HCL 1 MG TABLET TAKE ONE TABLET BY MOUTH TWICE A DAY ORAL NOT-TAKING ALPRAZOLAM 0.5 MG TABLET (SCHEDULE IV DRUG) TAKE ONE TABLET BY MOUTH THREE TIMES A DAY NEEDED FOR ANXIETY MAXIMUM DAILY DOSE 3 ORAL MEDICATION LIST REVIEWED AND RECONCILED WITH THE PATIENT PAST MEDICAL HISTORY VITAMIN D DEFICIENCY HYPERLIPIDEMIA ANEMIA ANXIETY DEPRESSIVE HYPERTENSIVE ACUTE SINUSITIS ACUTE SCIATICA BACKACHE FUNCTIONAL HEART MURMUR PAIN IN RIGHT KNEE CORONARY HEART DISEASE PAIN IN RIGHT HAND IMPACTED CERMEN OF BILATERAL EARS HYPOTHYROIDISM ARTHRITS HANDS CHRONIC BACK PAIN SCIATIC POST MENOPAUSAL NECK PAIN ALLERGIES SULFONAMIDE ANTIBIOTICS: ITCHING - ALLERGY SEASONAL: HIVES SOCIAL HISTORY GENERAL: TOBACCO USE ARE YOU A:FORMER SMOKER VAPORYES E-CIGARETTEYES LATEX QUESTIONNAIRE LATEX ALLERGY : HAVE YOU EVER DEVELOPED ANY TYPE OF REACTION AFTER HANDLING LATEX PRODUCTS SUCH RUBBER GLOVES, CONDOMS, DIAPHRAGMS, BALLOONS, SOCKS, OR UNDERWEAR?NO LATEX ALLERGY : HAVE YOU EVER DEVELOPED ANY TYPE OF REACTION DURING OR AFTER DENTAL APPOINTMENT, VAGINAL/RECTAL EXAMINATION, SURGICAL PROCEDURE, OR ANY OTHER EXPOSURE?NO LATEX RISK : HAVE YOU EVER HAD ANY DIFFICULTY BREATHING OR HIVES AFTER EATING OR HANDLING ANY FRUITS, OR VEGETABLES; SUCH KIWI, BANANAS, STONE FRUITS, OR CHESTNUTSNO LATEX RISK : DO YOU HAVE A PREVIOUS PERSONAL HISTORY OF MORE THAN NINE SURGERIES, SPINA BIFIDA, OR REPEATED CATHERIZATIONS? NO LATEX RISK : ARE YOU FREQUENTLY EXPOSED TO LATEX PRODUCTS IN YOUR OCCUPATION?NO DATE ASKED : 08/04/2020 ALCOHOL USE: NO. RECREATIONAL DRUG USE DRUG USE?NO LANGUAGE LANGUAGES SPOKEN:UPPER SORBIAN LEARNING BARRIERS / SPECIAL NEEDS BARRIERS TO LEARNING?NO HEARING IMPAIRED?NO VISION IMPAIRED?YES :CORRECTIVE LENSES COGNITIVELY IMPAIRED?NO READINESS TO LEARN?YES LEARNING PREFERENCES?NO LEARNING CAPABILITIES PRESENT?YES EMOTIONAL BARRIERS?YES ANXIETY, DEPRESSION SPECIAL DEVICES?NO FIELD AUTOMOBILE ADJUSTER NEEDED?NO MARITAL STATUS: .. REVIEW OF SYSTEMS CONSTITUTIONAL: ANY RECENT FEVER NO . CHILLS NO . WEIGHT CHANGE OF UNKNOWN REASONS NO . GASTROENTEROLOGY: NEW UNEXPLAINABLE CHANGES IN BOWEL CONTROL NO . CONSTIPATION NO . GENITOURINARY: ANY NEW CHANGE IN BLADDER CONTROL? NO . NEUROLOGY: NEW ONSET DIZZINESS OR NEUROLOGICAL CHANGES NOT MENTIONED NO . NEW NUMBNESS OR PAIN PATTERNS NOT MENTIONED AND PERTINENT TO TODAY'S VISIT NO . CARDIOLOGY: NEW CHEST PRESSURE NO . PATIENT DENIES NO . RESPIRATORY: UNEXPLAINABLE COUGH NO . NEW SHORTNESS OF BREATH NO . VITAL SIGNS WT 196.0 LBS, HT 63 IN, BMI 34.72 INDEX, BP 178/90 MM HG, HR 94 /MIN, RR 18 /MIN, TEMP 98.3 F, OXYGEN SAT % 96%, SAFE IN ENV? (Y/N) YES, NA INITIALS AW 1414T.SHALA JUDGE. EXAMINATION GENERAL EXAMINATION: GENERALAWAKE,ALERT ,PLEASANT . PSYCHAFFECT NORMAL . LUNGS:LUNG GRANT ARE CLEAR TO AUSCULTATION BILATERALLY. GOOD MOVEMENT OF AIR . HEART:S1, S2 IN A REGULAR RATE AND RHYTHM. NO SIGNIFICANT MURMURS, RUBS OR GALLOPS NOTED . ASSESSMENTS CHRONIC PRESCRIPTION OPIATE USE - Z79.899 (PRIMARY) DEGENERATIVE LUMBAR SPINAL STENOSIS - M48.061 TREATMENT CHRONIC PRESCRIPTION OPIATE USE REFILL HYDROCODONE-ACETAMINOPHEN TABLET, 5-325 MG, 1 TABLET NEEDED, ORALLY, Q8H PRN MDD3 #45 TAB SHOULD LAST 30 DAYS, 30 DAYS, 45, REFILLS 0 REFILL GABAPENTIN CAPSULE, 300 MG, 1 CAP, ORALLY, BID, 30 DAYS, 60 CAPSULE, REFILLS 2 LAB: URINE TEST GROUP KATIE LAST 08/04/2020 2:37:18 PM > LAST DOSE: GABAPENTIN 07/30/2020 HYDROCODONE 08/04/2020 @10AM NOTES: ISTOP REGISTRY REVIEWED AND DEMONSTRATES COMPLLIANCE. , RISKS OF NARCOTIC/OPIOD MEDICATIONS INCLUDES BUT IS NOT LIMITED TO RISK OF DEPENDANCE/DEVELOPMENT OF ADDICTION, MOOD DISTURBANCE AND DEPRESSION, OSTEOPOROSIS, HORMONAL AND LABIDAL CHANGES, RESPIRATORY DEPRESSION AND . PATIENT IS ADVISED NOT TO DRIVE OR DRINK ALCOHOL WHILE ON THESE MEDICATIONS. PROCEDURE CODES [id number] ESTABILISHED PATIENT [facility] FACILITY CHARGE DISPOSITION & COMMUNICATION FOLLOW UP 2 MONTHS (REASON: MED MGMNT/REVIEW UTOX) ELECTRONICALLY SIGNED BY ULYSSES PENN ON 08/07/2020 AT 02:07 PM EDT DISCLAIMER : THIS IS A VISIT SUMMARY EXTRACTED FROM THE [employer] CHART. IT IS NOT A COPY OF THE [employer] PROGRESS NOTE. REBECCA
== END ==
LOC: M PAIN 13:45
PROVIDERS: ATTEND Nurse Practitioner Family
DX: M48.061 Spinal stenosis, lumbar region without neurogenic claudication (principal); E55.9 Vitamin D deficiency, unspecified; E78.5 Hyperlipidemia, unspecified; D64.9 Anemia, unspecified; F41.9 Anxiety disorder, unspecified; F32.9 Major depressive disorder, single episode, unspecified; J30.2 Other seasonal allergic rhinitis; I25.10 Atherosclerotic heart disease of native coronary artery without angina pectoris; E03.9 Hypothyroidism, unspecified; F17.290 Nicotine dependence, other tobacco product, uncomplicated; Z88.2 Allergy status to sulfonamides; Z79.899 Other long term (current) drug therapy; Z79.891 Long term (current) use of opiate analgesic; Z79.82 Long term (current) use of aspirin

== ENCOUNTER → 2021-05-28 | Outpatient (CLI) | payer OTHER ==
[~2021-05-28] MED LIST changes: +AMOX875T2 PO; -D31000TA2 PO; -LISI-898 PO; +LISI5TAB11 PO; +VITA100093 PO
== END ==
LOC: M PAIN 13:30
PROVIDERS: ATTEND Nurse Practitioner Family
DX: M51.16 Intervertebral disc disorders with radiculopathy, lumbar region (principal); E55.9 Vitamin D deficiency, unspecified; E78.5 Hyperlipidemia, unspecified; D64.9 Anemia, unspecified; F41.9 Anxiety disorder, unspecified; F32.A Depression, unspecified; I10 Essential (primary) hypertension; I25.10 Atherosclerotic heart disease of native coronary artery without angina pectoris; E03.9 Hypothyroidism, unspecified; M54.2 Cervicalgia; J30.1 Allergic rhinitis due to pollen; Z88.2 Allergy status to sulfonamides; Z79.82 Long term (current) use of aspirin; Z79.899 Other long term (current) drug therapy

== ENCOUNTER 2021-06-04 09:34 | Emergency (ER) | payer OTHER ==
[~2021-06-04] VITALS: Ht 170.2 cm; Wt 77.3 kg
[~2021-06-04 09:34] MED LIST changes: -AMOX875T2 PO
[2021-06-04] MEDS ORDERED: AUGMENTIN 875 MG TAB PO ONE (12:35)
[2021-06-04] MEDS ORDERED: AMOX875T2 PO (12:42)
[2021-06-04 12:58] VITALS: BP 158/64
== END 2021-06-04 13:00 | disposition home or self-care (01) ==
LOC: M ED 09:34
DX: J01.90 Acute sinusitis, unspecified (principal); I48.91 Unspecified atrial fibrillation; I25.10 Atherosclerotic heart disease of native coronary artery without angina pectoris; I10 Essential (primary) hypertension; E78.5 Hyperlipidemia, unspecified; E03.9 Hypothyroidism, unspecified; G89.29 Other chronic pain; M54.50 Low back pain, unspecified; Z87.891 Personal history of nicotine dependence; Z88.2 Allergy status to sulfonamides; Z79.899 Other long term (current) drug therapy; Z79.890 Hormone replacement therapy

== ENCOUNTER → 2021-07-05 | Outpatient (CLI) | payer OTHER ==
[~2021-07-05] MED LIST changes: +AMOX875T2 PO
== END ==
LOC: M PAIN 11:15
PROVIDERS: ATTEND Nurse Practitioner Family
DX: M51.16 Intervertebral disc disorders with radiculopathy, lumbar region (principal); G89.29 Other chronic pain; E03.9 Hypothyroidism, unspecified; Z86.59 Personal history of other mental and behavioral disorders; Z88.2 Allergy status to sulfonamides; Z79.01 Long term (current) use of anticoagulants; Z79.82 Long term (current) use of aspirin; Z79.899 Other long term (current) drug therapy

== ENCOUNTER → 2022-08-29 | Outpatient (REF) | payer OTHER ==
[2022-08-29 18:48] LABS: BASO # 0.1 10^3/uL (0.0-0.2); EOS # 0.3 10^3/uL (0.0-0.5); EOS % 4.4 % (0.0-3.0); HEMATOCRIT 38.6 % (36.0-47.0); HEMOGLOBIN 11.9 g/dl (12.0-15.5); LYMPH # 1.4 10^3/uL (1.5-5.0); LYMPH % 19.3 % (24.0-44.0); MEAN CORPUSCULAR HGB CONC 30.8 g/dl (32.0-36.5); MEAN CORPUSCULAR VOLUME 94.1 fl (80.0-96.0); MONO # 0.6 10^3/uL (0.0-0.8); MONO % 8.8 % (2.0-8.0); NEUTROPHILS # 4.7 10^3/uL (1.5-8.5); NEUTROPHILS % 65.9 % (36.0-66.0); PLATELET COUNT, AUTOMATED 244 10^3/uL (150-450); WHITE BLOOD COUNT 7.1 10^3/uL (4.0-10.0)
[2022-08-29 18:52] LABS: ALBUMIN 3.9 G/DL (3.2-5.2); ALKALINE PHOSPHATASE 131 U/L (46-116); ALT/SGPT 19 U/L (7.0-40); AST/SGOT < 8 U/L (<34); BILIRUBIN,TOTAL 0.4 MG/DL (0.3-1.2); BLOOD UREA NITROGEN 31 MG/DL (9-23); CALCIUM LEVEL 9.2 MG/DL (8.3-10.6); CARBON DIOXIDE LEVEL 26 MMOL/L (20-31); CHLORIDE LEVEL 107 MMOL/L (98-107); CHOLESTEROL LEVEL 147 MG/DL (<200); CHOLESTEROL RISK RATIO 3.79 (<5); CREATININE FOR GFR 0.98 MG/DL (0.55-1.30); GLOMERULAR FILTRATION RATE > 60.0 (>45); GLUCOSE, FASTING 90 MG/DL (74-106); HDL CHOLESTEROL 38.7 MG/DL (>40); LDL CHOLESTEROL 81.3 MG/DL (<100); NON-HDL-C 108.3 MG/DL; POTASSIUM SERUM 5.1 MMOL/L (3.5-5.1); SODIUM LEVEL 137 MMOL/L (136-145); THYROID STIMULATING HORMONE 0.044 uIU/ML (0.55-4.78); TOTAL 25(OH) VITAMIN D 34.1 NG/ML (20.0-100.0); TOTAL PROTEIN 6.8 G/DL (5.7-8.2); TRIGLYCERIDES LEVEL 135 MG/DL (<150)
[2022-08-29 19:18] LABS: HIV 1&2 SCREEN NEGATIVE (NEGATIVE)
[2022-08-29 19:26] LABS: HEPATITIS C VIRUS ABY INDEX 0.09 INDEX (<0.8)
[2022-08-29 20:07] LABS: HEMOGLOBIN A1c 5.8 % (4.0-6.0)
== END ==
LOC: M LAB REF 17:27
PROVIDERS: ATTEND Nurse Practitioner Family
DX: Z13.228 Encounter for screening for other metabolic disorders (principal); Z11.59 Encounter for screening for other viral diseases; Z11.4 Encounter for screening for human immunodeficiency virus [HIV]

== ENCOUNTER → 2022-10-22 | Outpatient (REF) | payer OTHER ==
[~2022-10-22] MED LIST changes: -ROPI1TAB3 PO; +ROPI1TAB73 PO
== END ==
LOC: M LAB REF 17:50
PROVIDERS: ATTEND Nurse Practitioner Family
DX: E03.9 Hypothyroidism, unspecified (principal)

== ENCOUNTER → 2022-12-11 | Outpatient (REF) | payer OTHER | LOC: M LAB REF 11:28 | PROVIDERS: ATTEND Nurse Practitioner Family | DX: E03.9 Hypothyroidism, unspecified (principal) ==

== ENCOUNTER → 2023-04-07 | Outpatient (REF) | payer OTHER | LOC: M LAB REF 12:04 | PROVIDERS: ATTEND Nurse Practitioner Family | DX: E03.9 Hypothyroidism, unspecified (principal) ==

== ENCOUNTER → 2023-04-24 | Outpatient (CLI) | payer OTHER ==
[2023-04-24 10:40] LABS: CHOLESTEROL RISK RATIO 3.34 (<5); HDL CHOLESTEROL 37.4 MG/DL (>40); LDL CHOLESTEROL 62.8 MG/DL (<100); NON-HDL-C 87.6 MG/DL
== END ==
LOC: M LAB 08:44
PROVIDERS: ATTEND Nurse Practitioner Family
DX: I25.709 Atherosclerosis of coronary artery bypass graft(s), unspecified, with unspecified angina pectoris (principal)

== ENCOUNTER → 2023-06-27 | Outpatient (REF) | payer OTHER ==
[2023-06-27 12:36] LABS: FREE T4 1.17 NG/DL (0.89-1.76)
[2023-06-27 12:37] LABS: THYROID STIMULATING HORMONE 0.126 uIU/ML (0.55-4.78)
== END ==
LOC: M LAB REF 11:39
PROVIDERS: ATTEND Nurse Practitioner Family
DX: E03.9 Hypothyroidism, unspecified (principal)

== ENCOUNTER → 2023-10-31 | Outpatient (REF) | payer OTHER ==
[~2023-10-31] MED LIST changes: +FLUO-365 PO; -FLUO20CA22 PO
[2023-10-31 18:05] LABS: FREE T4 1.28 NG/DL (0.89-1.76); THYROID STIMULATING HORMONE 0.3 uIU/ML (0.55-4.78)
== END ==
LOC: M LAB REF 16:14
PROVIDERS: ATTEND Nurse Practitioner Family
DX: E03.9 Hypothyroidism, unspecified (principal)

== ENCOUNTER → 2023-12-22 | Outpatient (REF) | payer OTHER ==
[2023-12-22 17:17] LABS: ALBUMIN 3.8 G/DL (3.2-5.2); ALKALINE PHOSPHATASE 110 U/L (46-116); ALT/SGPT 19 U/L (7.0-40); AST/SGOT 16 U/L (<34); BILIRUBIN,TOTAL 0.6 MG/DL (0.3-1.2); BLOOD UREA NITROGEN 24 MG/DL (9-23); CALCIUM LEVEL 10.1 MG/DL (8.3-10.6); CARBON DIOXIDE LEVEL 27 MMOL/L (20-31); CHLORIDE LEVEL 109 MMOL/L (98-107); CHOLESTEROL LEVEL 170 MG/DL (<200); GLOMERULAR FILTRATION RATE > 60.0 (>45); GLUCOSE, FASTING 91 MG/DL (74-106); HDL CHOLESTEROL 45.9 MG/DL (>40); LDL CHOLESTEROL 102.1 MG/DL (<100); MAGNESIUM LEVEL 1.9 MG/DL (1.8-2.4); NON-HDL-C 124.1 MG/DL; POTASSIUM SERUM 5.2 MMOL/L (3.5-5.1); SODIUM LEVEL 139 MMOL/L (136-145); TOTAL PROTEIN 7.3 G/DL (5.7-8.2); TRIGLYCERIDES LEVEL 110 MG/DL (<150)
[2023-12-22 17:19] LABS: FREE T4 1.43 NG/DL (0.89-1.76); THYROID STIMULATING HORMONE 0.458 uIU/ML (0.55-4.78)
[2023-12-22 17:22] LABS: BASO # 0.1 10^3/uL (0.0-0.2); BASO % 1.2 % (0.0-1.0); EOS # 0.4 10^3/uL (0.0-0.5); EOS % 4.5 % (0.0-3.0); HEMATOCRIT 42.4 % (36.0-47.0); HEMOGLOBIN 13.3 g/dl (12.0-15.5); LYMPH # 1.5 10^3/uL (1.5-5.0); LYMPH % 19.2 % (24.0-44.0); MEAN CORPUSCULAR HEMOGLOBIN 28.9 pg (27.0-33.0); MEAN CORPUSCULAR HGB CONC 31.4 g/dl (32.0-36.5); MEAN CORPUSCULAR VOLUME 92.2 fl (80.0-96.0); MONO # 0.5 10^3/uL (0.0-0.8); MONO % 6.1 % (2.0-8.0); NEUTROPHILS # 5.5 10^3/uL (1.5-8.5); NEUTROPHILS % 68.6 % (36.0-66.0); PLATELET COUNT, AUTOMATED 262 10^3/uL (150-450)
[2023-12-22 17:38] LABS: HEMOGLOBIN A1c 5.5 % (4.0-6.0)
== END ==
LOC: M LAB REF 16:26
PROVIDERS: ATTEND Nurse Practitioner Family
DX: E03.9 Hypothyroidism, unspecified (principal); E66.9 Obesity, unspecified

== ENCOUNTER → 2024-10-20 | Outpatient (REF) | payer MEDICARE, MEDICAID | LOC: M LAB REF 14:24 | PROVIDERS: ATTEND Physician Assistant | DX: R35.89 Other polyuria (principal) ==